=== PATIENT | male | born 1945 | race Caucasian/White ===

== ENCOUNTER → 2018-03-17 06:55 | Outpatient (CLI) | payer MEDICARE, SELFPAY ==
[2018-03-17 09:28] LABS: Add Manual Diff / Slide Review NO; Basophils Percent Auto 0.6 % (0-2); Eosinophils Percent Auto 5.1 % (2-4); Hematocrit 43.3 % (41-53); Hemoglobin 15.2 g/dL (13.5-17.5); Lymphocytes Percent Auto 25.9 % (25-40); Mean Corpuscular HGB Conc 35.1 % (30-36); Mean Corpuscular Hemoglobin 34.3 PG (26-34); Mean Corpuscular Volume 97.6 fL (80-100); Monocytes Percent Auto 9.6 % (3-14); Neutrophils Absolute Auto 3100 /uL (3000-5900); Neutrophils Percent Auto 58.8 % (50-75); Platelet Count 162 X10^3/uL (150-400); Red Blood Cell Count 4.44 X10^6/uL (4.5-5.9); Red Cell Distribution Width 13.5 % (11.6-14.8); White Blood Cell Count 5.2 X10^3/uL (4.5-11.0)
[2018-03-17 10:17] LABS: HEMOLYSIS < 15 (0-50); Potassium 4.2 mmol/L (3.4-5.1)
[2018-03-17 10:20] LABS: Alanine Aminotransferase 34 IU/L (21-72); Albumin 3.9 g/dL (3.5-5.0); Albumin Globulin Ratio 1.4 (1.0-2.8); Alkaline Phosphatase 68 U/L (38-126); Aspartate Aminotransferase 24 IU/L (17-59); BUN Creatinine Ratio 18.9 (6-22); Bilirubin Total 1.3 mg/dL (0.2-1.3); Blood Urea Nitrogen 17 mg/dL (9-20); Calcium 8.8 mg/dL (8.4-10.2); Carbon Dioxide 28 mmol/L (22-32); Chloride 101 mmol/L (98-107); Cholesterol 195 mg/dL (140-199); Estimated Glomerular Filt Rate > 60.0 mL/min (>60); Globulin 2.7 g/dL (1.7-4.1); Glucose 86 mg/dL (80-110); HDL Cholesterol 45 mg/dL (40-60); LDL Cholesterol Calculated 132 mg/dL (<100); Sodium 140 mmol/L (137-145); Total Protein 6.6 g/dL (6.3-8.2); Triglycerides 90 mg/dL (35-150)
[2018-03-17 10:22] LABS: TSH w/ Reflex to FT4 3.55 uIU/mL (0.47-4.68)
[2018-03-17 10:38] LABS: Prostate Specific Antigen Scrn 2.06 ng/mL (0.1-4.0)
== END ==
PROVIDERS: Visit Provider Family Medicine
DX: E03.9 Hypothyroidism, unspecified (principal); Z12.5 Encounter for screening for malignant neoplasm of prostate
CPT/HCPCS: 36415; 80053; 80061; 84443; 85025; G0103

== ENCOUNTER 2019-03-09 08:01 | Day surgery (SDC) | payer MEDICARE, SELFPAY ==
[2019-03-09] VITALS (9 sets, daily range): BP systolic 93–134; BP diastolic 61–78; PULSE 51–59; RESP 11–17; TEMP 35.8–36.4; O2SAT 93–98; BMI 25.8
--- NOTE | 2019-03-09 | PATH_ITS ---
[facility] Accession Number: [id number] . 01 Material submitted: . PART A: colon - BIOPSY AT 30CM PART B: colon - DESCENDING COLON BIOPSY PART C: rectum - RECTUM BIOPSY . 02 Diagnosis: A. Colon, Biopsy at 30 cm, Biopsy: Hyperplastic polyp. . B. Descending Colon, Biopsy: Tubular adenoma. . C. Rectum, Biopsy: Hyperplastic polyp. MRV/03/13/2019 . 02 Electronically signed: . Mandi Dickson MD, Pathologist NPI- [id number] . 01 Gross description: . Part A: BIOPSY AT 30CM: Received in formalin are multiple fragment(s) of browning, soft tissue measuring 0.8 x 0.3 x 0.2 cm in aggregate submitted entirely in 1 cassette(s) Part B: DESCENDING COLON BIOPSY: Received in formalin are multiple fragment(s) of browning, soft tissue measuring 0.5 x 0.5 x 0.2 cm in aggregate submitted entirely in 1 cassette(s) Part C: RECTUM BIOPSY: Received in formalin are multiple fragment(s) of browning, soft tissue measuring 0.8 x 0.5 x 0.2 cm in aggregate submitted entirely in 1 cassette(s) /CKI /CKI . 02 Pathologist provided ICD-10: D12.4 . 02 CPT . 807121, 715160, [id number] Performed at: 01 [facility] [address] [facility], [place], [place] [id number] MD Geo Delatorre MD Phone: [phone] Performed at: 02 [facility] [address] [place], [place] [id number] MD Mandi Dickson MD Phone: [phone]
[2019-03-09] MEDS: SODIUM CHLORIDE 0.9% 1,000 ML 200 ML IV (09:08)
--- NOTE | 2019-03-09 10:37 | PM.HP.1 ---
History of Present Illness Date Patient Seen: 03/09/19 Time Patient Seen: 10:37 Chief complaint: [id number] Narrative: Patient is a gentleman here for screening exam. He has a personal history of polyps. Last exam was 5 years ago. Patient History Medical History Atrial fibrillation (Chronic) Chronic anticoagulation (Chronic) Hearing loss (Chronic 1999) Chicken pox (Resolved ~1949) Colles' fracture (Resolved 1974) Colon polyps (Resolved 2004) Empyema lung (Resolved ~1988) Fracture of left pelvis (Resolved 1974) Measles (Resolved ~1949) Surgical History Anesthesia (Resolved) Empyema of lung (Resolved ~1988) History of orthopedic surgery (Resolved 1974) Status post cholecystectomy (Resolved 1976) Family History Grandfather Heart disease Bronchial pneumonia Grandmother Stroke Mother Age: 100 Shortness of breath Suspected cervical cancer Skin cancer Grandfather Stroke Diabetes mellitus Father Asbestos exposure Smoker Grandmother Diabetes mellitus Sister No problems noted. Social History marital status: number of children: 2 household members: spouse lives independently: Yes caregiver/support person: No pets and animals: No education level: vocational Smoking Status: Never smoker alcohol intake: current Family & Social History Family History Grandfather Heart disease Bronchial pneumonia Grandmother Stroke Mother Age: 100 Shortness of breath Suspected cervical cancer Skin cancer Grandfather Stroke Diabetes mellitus Father Asbestos exposure Smoker Grandmother Diabetes mellitus Sister No problems noted. Social History: household members spouse lives independently Yes caregiver/support person No Tobacco & Substance use: Smoking Status Never smoker alcohol intake current Meds Home Medications Medication Instructions Recorded Confirmed Type flecainide 1 tab PO BID #0 10/23/17 03/09/19 History metoprolol tartrate 50 mg tablet 25 mg PO BID tab 03/23/18 03/09/19 History levothyroxine 75 mcg tablet 75 mcg PO QAM #90 tab 03/31/18 03/09/19 Rx warfarin 5 mg tablet 5 mg PO QDAY #100 tab 07/12/18 03/09/19 Rx Allergies Allergy/AdvReac Type Severity Reaction Status Date / Time No Known Drug Allergies Allergy Verified 03/09/19 08:52 Review of Systems Review of Systems All systems reviewed & are unremarkable except as noted in HPI and below Neurologic Comments: Hypothyroid Exam Vital Signs (past 8 hours): - 03/09/19 08:59 Temperature 97.5 F L Pulse Rate 54 L Respiratory Rate 15 Blood Pressure 134/78 Pulse Oximetry 98 Oxygen Delivery Method Room Air Narrative Exam Narrative: Pleasant cooperative patient no apparent distress. Lungs are clear to auscultation. No rales or rhonchi. Heart regular rate and rhythm no murmur gallop. Abdomen is soft nontender without mass. No obvious hernias. Patient is alert and oriented x3. Assessment & Plan Assessment & Plan narrative: The patient for a screening colonoscopy. I have discussed the procedure with them. Risks of bleeding, perforation which would necessitate major operation, failure to find remove all lesions, the potential tattoo were all discussed. All questions were answered. They wished to proceed.
--- NOTE | 2019-03-09 10:39 | PM.PREOP ---
Pre-operative Note Interval Note History & Physical reviewed/Exam performed by Physician: Yes Changes to H&P: No ASA Class (for procedural sedation): II
[2019-03-09] MEDS: fentaNYL 250 MCG/5 ML INJ IV (11:14)
[2019-03-09] MEDS: MIDAZOLAM 5 MG/5 ML VIAL IV (11:15)
--- NOTE | 2019-03-09 11:19 | PM.OP.ENDO ---
Operative Date/Time/Diagnoses Date of procedure: 03/09/19 Time of procedure: 11:19 Pre-op diagnosis: Screening examination. Last colonoscopy 5 years ago. Personal history of polyps. Post-op diagnosis: same (Multiple polyps. Incomplete exam) Procedure & Clinicians Study performed: Colonoscopy to the hepatic flexure. Cold biopsies Same procedure as scheduled: Yes Indications: Screening Surgeon: Jesús Sánchez Procedure Notes SCOAP/Timeout: Performed Procedure in detail: The patient was placed in the left lateral decubitus position and underwent IV sedation directed by the surgeon consisting of fentanyl and Versed. Digital exam was remarkable for large firm prostate. The scope was inserted and advanced through the rectum into the sigmoid, descending, and transverse colon. I noted [address] in and removed those with cold biopsy forceps placing them in the same cane Min due to the proximity to 1 another. When I reached what appeared to be the hepatic flexure ran out of scope. Scope was backed away a stiffener inserted pressure applied the patient was repositioned and despite all of the maneuvers I could not get any further. I then backed the scope out a considerable distance and reinserted it to no additional effect. After spending a considerable amount of time stagnant and unable to go beyond that position I abandoned the procedure and gradually brought the scope out. The scope was gradually brought out. Additional Polyps were found at the descending colon. The scope ultimately was retroflexed in the rectum. There w were several small lesion there that was biopsied. No internal hemorrhoids were seen The scope was removed and the patient tolerated the procedure well. Prep was good. Scope withdrawal time: Not applicable Sedation minutes: 34 Findings: polyp (Small) and other findings (Elongated colon) Specimen(s): other (Polyps) Complications: none Recommendations: Colonscopy in 5 years and Other recommendation (Barium enema to evaluate the cecum and ascending colon) Follow up: as needed Disposition: PACU
== END 2019-03-09 12:32 | disposition home or self-care (01) ==
PROVIDERS: PCP Family Medicine; Visit Provider Specialist
PROC: 0DJD8ZZ Inspection of Lower Intestinal Tract, Via Natural or Artificial Opening Endoscopic (ICD-10-PCS; CPT 45378; principal; 2019-03-09 09:45)
DX: Z86.010 Personal history of colon polyps (principal); D12.4 Benign neoplasm of descending colon; K62.1 Rectal polyp
CPT/HCPCS: 45380; 88305; 99152; 99153; J2250; J3010

== ENCOUNTER → 2019-04-24 07:27 | Outpatient (CLI) | payer MEDICARE, SELFPAY ==
[2019-04-24 08:03] LABS: Add Manual Diff / Slide Review NO; Basophils Absolute Auto 0 /uL (0-100); Basophils Percent Auto 0.6 % (0-2); Eosinophils Absolute Auto 400 /uL (0-450); Eosinophils Percent Auto 7.2 % (2-4); Hematocrit 43.2 % (41-53); Hemoglobin 14.8 g/dL (13.5-17.5); Lymphocytes Absolute Auto 1500 /uL (1100-4500); Lymphocytes Percent Auto 26.3 % (25-40); Mean Corpuscular HGB Conc 34.3 % (30-36); Mean Corpuscular Hemoglobin 33.8 PG (26-34); Mean Corpuscular Volume 98.5 fL (80-100); Monocytes Absolute Auto 500 /uL (0-900); Monocytes Percent Auto 8.9 % (3-14); Neutrophils Absolute Auto 3300 /uL (1500-7000); Platelet Count 182 X10^3/uL (150-400); Red Blood Cell Count 4.39 X10^6/uL (4.5-5.9); Red Cell Distribution Width 13.5 % (11.6-14.8); White Blood Cell Count 5.8 X10^3/uL (4.5-11.0)
[2019-04-24 08:19] LABS: Alanine Aminotransferase 25 IU/L (21-72); Albumin Globulin Ratio 1.4 (1.0-2.8); Alkaline Phosphatase 57 U/L (38-126); Aspartate Aminotransferase 25 IU/L (17-59); BUN Creatinine Ratio 18.9 (6-22); Bilirubin Total 1.2 mg/dL (0.2-1.3); Blood Urea Nitrogen 17 mg/dL (9-20); Calcium 9.1 mg/dL (8.4-10.2); Carbon Dioxide 29 mmol/L (22-32); Chloride 105 mmol/L (98-107); Cholesterol 187 mg/dL (140-199); Estimated Glomerular Filt Rate > 60.0 mL/min (>60); Globulin 2.8 g/dL (1.7-4.1); Glucose 94 mg/dL (80-110); HDL Cholesterol 35 mg/dL (40-60); HEMOLYSIS < 15 (0-50); LDL Cholesterol Calculated 131 mg/dL (<100); Potassium 4.2 mmol/L (3.4-5.1); Sodium 142 mmol/L (137-145); Total Protein 6.8 g/dL (6.3-8.2); Triglycerides 106 mg/dL (35-150)
[2019-04-24 08:49] LABS: Prostate Specific Antigen Scrn 2.48 ng/mL (0.1-4.0)
[2019-04-24 09:37] LABS: Creatinine Urine Random 179.2 mg/dL
[2019-04-24 09:39] LABS: Microalbumi Creatinin Ratio Ur 4.4 ug/mg CR (<30); Microalbumin Urine Random 0.8 mg/dL (0-1.6)
== END ==
PROVIDERS: PCP Family Medicine; Visit Provider Family Medicine
DX: E03.9 Hypothyroidism, unspecified (principal); I10 Essential (primary) hypertension; I48.91 Unspecified atrial fibrillation; Z12.5 Encounter for screening for malignant neoplasm of prostate; Z98.890 Other specified postprocedural states
CPT/HCPCS: 36415; 80053; 80061; 82043; 82570; 84443; 85025; G0103

== ENCOUNTER → 2019-05-31 14:36 | Outpatient (CLI) | payer MEDICARE, SELFPAY ==
--- NOTE | 2019-05-31 | DI.ECHO.S_ITS ---
[facility]---------+ [facility] +---------+ : : [address] : : : : [id number] : : : : Phone: [phone] Echocardiogram Report + + :Name: SERGIO MILLS Study Date: 05/31/2019 Height: 70 in : :[facility] Exam Location: [facility] Weight: 183 lb : : Gender: Male BSA: 2.0 m2 : :: 1945 Age: 73 yrs BP: 104/68 mmHg: :Reason For Study: DILATED ASCENDING AO : : Performed By: Ponce Taylor : :Referring: CHARI JAQUEZ : + + Interpretation Summary The left ventricle is normal in size.Left ventricular ejection fraction is estimated to be 55. There has been no significant change in LVEF since the previous study. The right ventricle is normal in size and function. There is mild to moderate mitral regurgitation. Compared to the prior echo study, there has been an increase in the severity of mitral regurgitation. The ascending aorta is moderately enlarged. 4.3 cm in diameter. In November 2016 it was about 4.2 cm. Procedure: A two-dimensional transthoracic echocardiogram with color flow and Doppler was performed. The study quality was technically good. Comparison is made with the echocardiogram of 12/08/16. The patient was in normal sinus rhythm during the exam. The patient was bradycardic with a heart rate of 55-60 beats per minute. Left Ventricle: The left ventricle is normal in size. There is normal left ventricular wall thickness. There is no thrombus. There has been no significant change since the previous study. Left ventricular ejection fraction is estimated to be 55. There are no focal wall motion abnormalities. Diastolic parameters suggest probable normal left ventricular diastolic function and normal filling pressures. Right Ventricle: The right ventricle is normal in size and function. Atria: The left atrium is moderately dilated. The left atrium has significantly increased in size since the prior echo exam. The right atrium is severely dilated. There has been no significant change since the previous study. The interatrial septum is intact with no evidence for an atrial septal defect. Mitral Valve: The mitral valve leaflets are slightly calcified. There is mild to moderate mitral regurgitation. Compared to the prior echo study, there has been an increase in the severity of mitral regurgitation. Aortic Valve: The aortic valve is trileaflet. The aortic valve opens well. Tricuspid Valve: The tricuspid valve is normal. There is mild tricuspid regurgitation. The right ventricular systolic pressure is estimated to be at least 20 mmHg based on an estimated right atrial pressure of 3 mm Hg. Compared to the prior echo exam, there has been no change in TR severity. Pulmonic Valve: The pulmonic valve is not well seen, but is grossly normal. There is trace pulmonic regurgitation. Great Vessels: The aortic root is normal size. The ascending aorta is moderately enlarged. The pulmonary artery is normal size. The IVC is of normal diameter and collapses greater than 50% with a sniff. This suggests a low right atrial pressure of 3 mm Hg. Pericardium/ Pleura There is no pericardial effusion. There is no pleural effusion. MMode/2D Measurements & Calculations LVIDd: 5.2 cm LVOT diam: 2.5 cm LVIDs: 3.1 cm Ao root diam: 3.9 cm FS: 40.4 % Aortic Jxn: 3.6 cm EPSS: 0.47 cm asc Aorta Diam: 4.3 cm IVSd: 0.96 cm Ao Arch Diam (Prox Trans): 3.0 cm LVPWd: 0.81 cm LV ovalle. diameter/BSA (cm/m^2): 2.6 LV sys. diameter/BSA (cm/m^2): 1.5 LA dimension: 4.1 cm RA long axis: 5.9 cm LA A2 area: 26.7 cm2 RA area: 26.9 cm2 LA A4 area: 25.2 cm2 RA vol: 105.1 ml LA length (vol): 6.6 cm RA : 52.3 ml/m2 LA vol: 86.1 ml IVC diam: 0.67 cm LA vol index: 42.8 ml/m2 RVD1 (basal): 3.8 cm RVD2 (mid): 3.5 cm Doppler Measurements & Calculations Ao V2 max: 88.3 cm/sec LVOT Max Aniceto: 80.7 cm/sec Ao V2 mean: 73.0 cm/sec LV V1 max P.6 mmHg Ao max P.1 mmHg LV V1 VTI: 18.7 cm Ao mean P.2 mmHg MARGARITA(I,D): 3.9 cm2 Ao V2 VTI: 23.2 cm MARGARITA(V,D): 4.4 cm2 sev ratio: 0.80 MARGARITA indexed to BSA (cm^2/m^2): 1.9 MV E max aniceto: 56.6 cm/sec TR max aniceto: 204.8 cm/sec MV A max aniceto: 35.5 cm/sec TR max P.8 mmHg MV E/A: 1.6 PA V2 max: 43.0 cm/sec Med Peak E' Aniceto: 5.3 cm/sec PA V2 mean: 31.2 cm/sec E/E' med: 10.8 PA mean P.42 mmHg Lat Peak E' Aniceto: 7.5 cm/sec PA pr(Accel): 51.6 mmHg E/E' lat: 7.5 PA Accel Time: 0.07 sec E/e' average: 9.1 MV dec time: 0.25 sec SV(LVOT): 89.4 ml Reading Physician:05:07 PM
== END ==
PROVIDERS: PCP Family Medicine; Visit Provider Internal Medicine Cardiovascular Disease
DX: I77.810 Thoracic aortic ectasia (principal); I08.1 Rheumatic disorders of both mitral and tricuspid valves
CPT/HCPCS: 93306

== ENCOUNTER 2019-12-28 11:50 | Emergency (ER) | payer MEDICARE, SELFPAY ==
[2019-12-28 11:55] VITALS: BP 136/83; PULSE 99; RESP 20; TEMP 36.9; O2SAT 100
[2019-12-28 12:05] VITALS: BP 132/69; PULSE 110; RESP 16; TEMP 36.8; O2SAT 94
--- NOTE | 2019-12-28 12:48 | DI.RAD.S_ITS ---
PROCEDURE: XR CHEST 1V INDICATIONS: hx of afib, lightheadedness TECHNIQUE: One view of the chest was acquired. COMPARISON: [facility], , CHEST 2 VIEW, 12/07/2016, 19:13. FINDINGS: Surgical changes and devices: None. Lungs and pleura: Lungs are clear. No pleural effusions or pneumothorax. Mediastinum: Mediastinal contours appear normal. Heart size is normal. Bones and chest wall: No suspicious bony lesions. Overlying soft tissues appear unremarkable. IMPRESSION: No acute cardiopulmonary disease process. Dictated by: Flaca Browne MD, PhD on 12/28/2019 at 12:19 Approved by: Flaca Browne MD, PhD on 12/28/2019 at 12:23
--- NOTE | 2019-12-28 12:50 | ED.ARRPALP ---
HPI - Arrhythmia/Palpitations <AGNES Thomas - Last Filed: 12/28/19 23:47> General Chief Complaint: Arrhythmia/Palpitations Stated Complaint: Afib, SOB Time Seen by Provider: 12/28/19 12:35 Source: patient and EMS Mode of arrival: EMS Limitations: no limitations History of Present Illness HPI narrative: This is a 74-year-old male, who was brought in by medics with chief complain of lightheadedness. Patient has a history of AFib for last 2-3 years and had ablation procedure done about 2 years ago. Patient is currently taking metoprolol or 25 mg IR twice a day and flecainide 100 mg in the morning and 50 mg in the evening which patient forgot to take this morning. Patient reports he was playing 18 holes golf this morning and while he was playing last 6 home he was having some lightheadedness. He was on the way to [facility] via [employer] and he continue to felt lightheadedness almost at the point of passing out. He did not have chest pain, breathing difficulty at this time. Patient reports his usual heart rate is in 60s. Currently while at rest in ED patient denies any symptoms. Patient also has history of hypothyroidism and currently takes levothyroxine 75 mcg at this time. Related Data Home Medications Medication Instructions Recorded Confirmed metoprolol tartrate 50 mg tablet 25 mg PO BID tab 03/23/18 12/28/19 flecainide 50 mg tablet 100 mg PO QAM 10/04/19 12/28/19 flecainide 50 mg PO QPM 12/28/19 12/28/19 warfarin 5 mg PO DAILY 12/28/19 12/28/19 Previous Rx's Medication Instructions Recorded levothyroxine 75 mcg tablet 75 mcg PO QAM #90 tab 08/13/19 atorvastatin 20 mg tablet 20 mg PO BEDTIME #90 tab 08/29/19 Allergies Allergy/AdvReac Type Severity Reaction Status Date / Time No Known Drug Allergies Allergy Verified 08/29/19 09:02 Review of Systems <AGNES Thomas - Last Filed: 12/28/19 23:47> Review of Systems Narrative: General: Denies fever, chills, fatigue, malaise, sweats. HEENT: Denies sinus pain, ear pain, sore throat, difficulty swallowing, (+) dizziness. Respiratory: Denies dyspnea, cough, wheezing, hemoptysis, sputum. Cardiovascular: See HPI Gastrointestinal: Denies nausea, vomiting, abdominal pain, diarrhea, constipation, melena. : Denies dysuria, frequency, incontinence, hematuria, urinary retention. Musculoskeletal: Denies weakness, joint pain or bony pain. Skin: Denies rash, skin lesions, or other. Neurologic: Denies weakness, headache, numbness, change in speech, confusion, seizures, incoordination. Psychiatric: No concerning psychosocial issues. 12-point review of systems is negative except for those stated above. Patient History <AGNES Thomas - Last Filed: 12/28/19 23:47> Medical History Atrial fibrillation (Chronic) Chicken pox (Resolved ~1949) Chronic anticoagulation (Chronic) Colles' fracture (Resolved 1974) Colon polyps (Resolved 2004) Empyema lung (Resolved ~1988) Fracture of left pelvis (Resolved 1974) Hearing loss (Chronic 1999) Measles (Resolved ~1949) Surgical History Anesthesia (Resolved) Empyema of lung (Resolved ~1988) H/O cardiac radiofrequency ablation (Acute) History of orthopedic surgery (Resolved 1974) Status post cholecystectomy (Resolved 1976) Family History Grandfather Heart disease Bronchial pneumonia Grandmother Stroke Mother Age: 101 Shortness of breath Suspected cervical cancer Skin cancer Grandfather Stroke Diabetes mellitus Father Asbestos exposure Smoker Grandmother Diabetes mellitus Sister No problems noted. Social History marital status: number of children: 2 household members: spouse lives independently: Yes caregiver/support person: No housing: house pets and animals: No education level: vocational Smoking Status: Never smoker second hand exposure: No alcohol intake: current substance use type: does not use Smoking Status: Never smoker alcohol intake frequency: 0-2 drinks per day Substance Use Type: does not use Exam <AGNES Thomas - Last Filed: 12/28/19 23:47> Narrative Exam Narrative: GEN: Alert, oriented x 3, well appearing and nourished, and in no acute distress. Head: Normal cephalic, atraumatic. No scalp or temporal tenderness, palpable mass or rash. EYES: Pupils are equal, round, and reactive to light and accommodation. Extraocular muscles are intact bilaterally. There is no subconjunctival hemorrhage, exudate and sclera non-icteric. ENT: Bilateral auditory canals and tympanic membranes clear. Hearing grossly intact. Nose without bleeding, purulent discharge or deviation. Facial sinuses nontender to palpate. Mucous membrane moist, no mucosal lesion. Throat without erythema, tonsillar hypertrophy or exudate. Uvula in midline, airway patent. Neck: Trachea in midline. No JVD, non-tender without lymphadenopathy. No masses or thyroid megaly. Supple, non-tender and no meningeal signs. CARDIAC: Irregular rhythm without murmurs, gallops, or rubs. No chest wall tenderness. No peripheral edema, cyanosis or pallor. Capillary refill is less than 2 seconds. RESPIRATORY: Lungs are clear to auscultate bilaterally. No cough, wheezes, rales, or rhonchi. No stridor, respiratory distress, increase work of breathing, or accessary muscle used. ABD: Abdomen soft, nontender and non-distended. No guarding or rebound tenderness to palpate. Bowel sounds are normal in all 4 quadrants. There is no palpable masses or organomegaly. EXT: Full painless ROM of all extremities with no loss of sensation, strength, effusion or edema. SKIN: Warm, dry, normal color for patient. No erythema, lesions or rash over visible areas. BACK: Nontender without deformity or crepitance. No flank tenderness. NEUROLOGICAL: Alert and oriented to place, time and person. Sensation and motor function intact bilaterally. No facial droops, dysphasia. PSYCHIATRIC: Good judgement and reason, without hallucinations, abnormal affect or abnormal behaviors during the examination. Initial Vital Signs Initial Vital Signs: Vital Signs Temperature 98.4 F 12/28/19 11:55 Pulse Rate 99 H 12/28/19 11:55 Respiratory Rate 20 12/28/19 11:55 Blood Pressure 136/83 12/28/19 11:55 Pulse Oximetry 100 12/28/19 11:55 <Antonino Huitron MD - Last Filed: 01/04/20 17:57> Initial Vital Signs Initial Vital Signs: Vital Signs Temperature 98.4 F 12/28/19 11:55 Pulse Rate 99 H 12/28/19 11:55 Respiratory Rate 20 12/28/19 11:55 Blood Pressure 136/83 12/28/19 11:55 Pulse Oximetry 100 12/28/19 11:55 Scores <Robert BrannonAGNES hernandez - Last Filed: 12/28/19 23:47> GCS Herm[place]indo coma scale eye opening: Spontaneous [place] coma scale verbal response: Orientated [place] coma scale motor response: [place]bey commands [place] coma scale total score: 15 Course <Robert VazquezAGNES Guzman - Last Filed: 12/28/19 23:47> Orders Ordered: Discontinued Medications Flecainide Acetate (Tambocor) 100 mg PO NOW ONE Stop: 12/28/19 12:48 Last Admin: 12/28/19 13:09 Dose: 100 mg Documented by: ROZINA Sodium Chloride (Normal Saline 0.9%) 500 mls @ 1,000 mls/hr IV BOLUS ONE Stop: 12/28/19 13:16 Last Infusion: 12/28/19 14:00 Dose: 0 mls/hr Documented by: Admin: 12/28/19 13:09 Dose: 1,000 mls/hr Documented by: ROZINA Metoprolol Tartrate (Lopressor) 25 mg PO NOW ONE Stop: 12/28/19 12:48 Last Admin: 12/28/19 13:09 Dose: 25 mg Documented by: ROZINA Vital Signs Vital signs: Vital Signs - 8 hr 12/28/19 11:55 12/28/19 12:05 Temperature 98.4 F 98.3 F Pulse Rate 99 H 110 H Respiratory Rate 20 16 Blood Pressure 136/83 Blood Pressure [Right Arm] 132/69 Pulse Oximetry 100 94 <Antonino Huitron MD - Last Filed: 01/04/20 17:57> Orders Ordered: Discontinued Medications Flecainide Acetate (Tambocor) 100 mg PO NOW ONE Stop: 12/28/19 12:48 Last Admin: 12/28/19 13:09 Dose: 100 mg Documented by: ROZINA Sodium Chloride (Normal Saline 0.9%) 500 mls @ 1,000 mls/hr IV BOLUS ONE Stop: 12/28/19 13:16 Last Infusion: 12/28/19 14:00 Dose: 0 mls/hr Documented by: Admin: 12/28/19 13:09 Dose: 1,000 mls/hr Documented by: ROZINA Metoprolol Tartrate (Lopressor) 25 mg PO NOW ONE Stop: 12/28/19 12:48 Last Admin: 12/28/19 13:09 Dose: 25 mg Documented by: ROZINA Vital Signs Vital signs: Vital Signs - 8 hr 12/28/19 11:55 12/28/19 12:05 Temperature 98.4 F 98.3 F Pulse Rate 99 H 110 H Respiratory Rate 20 16 Blood Pressure 136/83 Blood Pressure [Right Arm] 132/69 Pulse Oximetry 100 94 MDM - Arrhythmia/Palpitations <AGNES Thomas - Last Filed: 12/28/19 23:47> Differential Diagnosis Differential diagnosis: Likely palpitations, sinus tachycardia, artial fibrillation and other (Arrhythmia) Medical Records Attestation: I reviewed the patient's medical records. Lab Data Attestation: I reviewed the patient's lab results. Result diagrams: 12/28/19 13:14 12/28/19 13:14 Labs: Lab Results 12/28/19 12/28/19 12/28/19 Range/Units 13:14 13:14 13:14 WBC 9.3 (4.5-11.0) X10^3/uL RBC 4.42 L (4.5-5.9) X10^6/uL Hgb 14.9 (13.5-17.5) g/dL Hct 43.5 (41-53) % MCV 98.3 (80-100) fL MCH 33.7 (26-34) PG MCHC 34.3 (30-36) % RDW 13.6 (11.6-14.8) % Plt Count 177 (150-400) X10^3/uL Neut % (Auto) 74.7 (50-75) % Lymph % (Auto) 14.5 L (25-40) % Burke % (Auto) 8.5 (3-14) % Eos % (Auto) 1.7 L (2-4) % Baso % (Auto) 0.6 (0-2) % Neut # (Auto) 7000 (9398-4328) /uL Lymph # (Auto) 1300 (6064-7937) /uL Burke # (Auto) 800 (0-900) /uL Eos # (Auto) 200 (0-450) /uL Baso # (Auto) 100 (0-100) /uL PT 26.1 H (10.1-12.7) SECONDS INR 2.3 H (0.9-1.3) APTT 36 (26.4-36.2) SECONDS Sodium 137 (137-145) mmol/L Potassium 4.5 (3.4-5.1) mmol/L Chloride 105 (98-107) mmol/L Carbon Dioxide 26 (22-32) mmol/L BUN 17 (9-20) mg/dL Creatinine 0.87 (0.66-1.25) mg/dL Estimated GFR > 60.0 (>60) mL/min BUN/Creatinine Ratio 19.5 (6-22) Glucose 104 (80-110) mg/dL Calcium 9.5 (8.4-10.2) mg/dL Magnesium (1.6-2.3) mg/dL Total Bilirubin 1.3 (0.2-1.3) mg/dL AST 29 (17-59) IU/L ALT 27 (<50) IU/L Alkaline Phosphatase 74 (38-126) U/L Total Creatine Kinase 63 (55-170) U/L CK-MB (CK-2) TNP CK-MB (CK-2) Rel Index TNP Troponin I < 0.012 (0.01-0.034) ng/mL Total Protein 7.1 (6.3-8.2) g/dL Albumin 4.1 (3.5-5.0) g/dL Globulin 3.0 (1.7-4.1) g/dL Albumin/Globulin Ratio 1.4 (1.0-2.8) Lipase 58 (23-300) U/L TSH (0.47-4.68) uIU/mL Free T4 (0.78-2.19) ng/dL 12/28/19 12/28/19 Range/Units 13:14 13:14 WBC (4.5-11.0) X10^3/uL RBC (4.5-5.9) X10^6/uL Hgb (13.5-17.5) g/dL Hct (41-53) % MCV (80-100) fL MCH (26-34) PG MCHC (30-36) % RDW (11.6-14.8) % Plt Count (150-400) X10^3/uL Neut % (Auto) (50-75) % Lymph % (Auto) (25-40) % Burke % (Auto) (3-14) % Eos % (Auto) (2-4) % Baso % (Auto) (0-2) % Neut # (Auto) (4076-9553) /uL Lymph # (Auto) (2187-1916) /uL Burke # (Auto) (0-900) /uL Eos # (Auto) (0-450) /uL Baso # (Auto) (0-100) /uL PT (10.1-12.7) SECONDS INR (0.9-1.3) APTT (26.4-36.2) SECONDS Sodium (137-145) mmol/L Potassium (3.4-5.1) mmol/L Chloride (98-107) mmol/L Carbon Dioxide (22-32) mmol/L BUN (9-20) mg/dL Creatinine (0.66-1.25) mg/dL Estimated GFR (>60) mL/min BUN/Creatinine Ratio (6-22) Glucose (80-110) mg/dL Calcium (8.4-10.2) mg/dL Magnesium 2.0 (1.6-2.3) mg/dL Total Bilirubin (0.2-1.3) mg/dL AST (17-59) IU/L ALT (<50) IU/L Alkaline Phosphatase (38-126) U/L Total Creatine Kinase (55-170) U/L CK-MB (CK-2) CK-MB (CK-2) Rel Index Troponin I (0.01-0.034) ng/mL Total Protein (6.3-8.2) g/dL Albumin (3.5-5.0) g/dL Globulin (1.7-4.1) g/dL Albumin/Globulin Ratio (1.0-2.8) Lipase (23-300) U/L TSH 3.35 (0.47-4.68) uIU/mL Free T4 1.50 (0.78-2.19) ng/dL ECG Data Attestation: I personally reviewed and interpreted this ECG as follows: Prior ECG tracings: available for review Interpretation: SR with occasional PVC and PAC rate at 91 Left [place] deviation No ST elevation or depression. Previous EKGs were a fever or normal sinus rhythm #2 EKG: -sinus rhythm rate at 64 with first-degree AV block with PAC -Left [place] deviation. No ST elevation. [facility] Narrative Medical decision making narrative: This is a 74-year-old gentleman who has history of AFib and cardiac ablation a couple of years ago and takes daily Flecainide and Metoprolol to control arrhythmia and rate daily presents to ED with lightheadedness after he forgot to take his morning dose medications and played [employer] hole golf this morning. Patient states his usual heart rate is in 60s and upon arrival to ED his heart rate was in 99 in sinus rhythm with PACs and PVCs without ST elevation or depression. Patient was medicated with his routine dose of flecainide and metoprolol. Cardiac enzymes were negative. Patient has history of hypothyroidism and takes levothyroxine daily. Normal TSH and free T4 today. Unremarkable chemistry test. Stable H&H and INR is 2.3 as in therapeutic range and patient currently takes warfarin daily. Chest x-ray indicates no acute cardiopulmonary disease process with normal heart size. 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 Repeat EKG was obtained before discharged to home indicating sinus rhythm rate at 64 with first-degree AV block without ST elevation. Patient also was hydrated with normal saline of 500 mL. Return precautions were discussed with the patient and patient verbalized understanding and agreement with treatment plan. <Antonino Huitron MD - Last Filed: 01/04/20 17:57> Lab Data Labs: Lab Results 12/28/19 12/28/19 12/28/19 Range/Units 13:14 13:14 13:14 WBC 9.3 (4.5-11.0) X10^3/uL RBC 4.42 L (4.5-5.9) X10^6/uL Hgb 14.9 (13.5-17.5) g/dL Hct 43.5 (41-53) % MCV 98.3 (80-100) fL MCH 33.7 (26-34) PG MCHC 34.3 (30-36) % RDW 13.6 (11.6-14.8) % Plt Count 177 (150-400) X10^3/uL Neut % (Auto) 74.7 (50-75) % Lymph % (Auto) 14.5 L (25-40) % Burke % (Auto) 8.5 (3-14) % Eos % (Auto) 1.7 L (2-4) % Baso % (Auto) 0.6 (0-2) % Neut # (Auto) 7000 (5886-1750) /uL Lymph # (Auto) 1300 (3369-0516) /uL Burke # (Auto) 800 (0-900) /uL Eos # (Auto) 200 (0-450) /uL Baso # (Auto) 100 (0-100) /uL PT 26.1 H (10.1-12.7) SECONDS INR 2.3 H (0.9-1.3) APTT 36 (26.4-36.2) SECONDS Sodium 137 (137-145) mmol/L Potassium 4.5 (3.4-5.1) mmol/L Chloride 105 (98-107) mmol/L Carbon Dioxide 26 (22-32) mmol/L BUN 17 (9-20) mg/dL Creatinine 0.87 (0.66-1.25) mg/dL Estimated GFR > 60.0 (>60) mL/min BUN/Creatinine Ratio 19.5 (6-22) Glucose 104 (80-110) mg/dL Calcium 9.5 (8.4-10.2) mg/dL Magnesium (1.6-2.3) mg/dL Total Bilirubin 1.3 (0.2-1.3) mg/dL AST 29 (17-59) IU/L ALT 27 (<50) IU/L Alkaline Phosphatase 74 (38-126) U/L Total Creatine Kinase 63 (55-170) U/L CK-MB (CK-2) TNP CK-MB (CK-2) Rel Index TNP Troponin I < 0.012 (0.01-0.034) ng/mL Total Protein 7.1 (6.3-8.2) g/dL Albumin 4.1 (3.5-5.0) g/dL Globulin 3.0 (1.7-4.1) g/dL Albumin/Globulin Ratio 1.4 (1.0-2.8) Lipase 58 (23-300) U/L TSH (0.47-4.68) uIU/mL Free T4 (0.78-2.19) ng/dL 12/28/19 12/28/19 Range/Units 13:14 13:14 WBC (4.5-11.0) X10^3/uL RBC (4.5-5.9) X10^6/uL Hgb (13.5-17.5) g/dL Hct (41-53) % MCV (80-100) fL MCH (26-34) PG MCHC (30-36) % RDW (11.6-14.8) % Plt Count (150-400) X10^3/uL Neut % (Auto) (50-75) % Lymph % (Auto) (25-40) % Burke % (Auto) (3-14) % Eos % (Auto) (2-4) % Baso % (Auto) (0-2) % Neut # (Auto) (3309-3966) /uL Lymph # (Auto) (7608-1793) /uL Burke # (Auto) (0-900) /uL Eos # (Auto) (0-450) /uL Baso # (Auto) (0-100) /uL PT (10.1-12.7) SECONDS INR (0.9-1.3) APTT (26.4-36.2) SECONDS Sodium (137-145) mmol/L Potassium (3.4-5.1) mmol/L Chloride (98-107) mmol/L Carbon Dioxide (22-32) mmol/L BUN (9-20) mg/dL Creatinine (0.66-1.25) mg/dL Estimated GFR (>60) mL/min BUN/Creatinine Ratio (6-22) Glucose (80-110) mg/dL Calcium (8.4-10.2) mg/dL Magnesium 2.0 (1.6-2.3) mg/dL Total Bilirubin (0.2-1.3) mg/dL AST (17-59) IU/L ALT (<50) IU/L Alkaline Phosphatase (38-126) U/L Total Creatine Kinase (55-170) U/L CK-MB (CK-2) CK-MB (CK-2) Rel Index Troponin I (0.01-0.034) ng/mL Total Protein (6.3-8.2) g/dL Albumin (3.5-5.0) g/dL Globulin (1.7-4.1) g/dL Albumin/Globulin Ratio (1.0-2.8) Lipase (23-300) U/L TSH 3.35 (0.47-4.68) uIU/mL Free T4 1.50 (0.78-2.19) ng/dL Discharge Plan Departure Patient Disposition: Home Clinical Impression: Dizziness Arrhythmia Qualifiers: Arrhythmia type: premature depolarization Premature depolarization type: unspecified Qualified Code(s): I49.40 - Unspecified premature depolarization Discharge Date/Time: 12/28/19 14:57 Instructions: Arrhythmias Activity Restrictions/Additional Instructions: You have been diagnosed with [arrhythmia and dizziness. EKG was initially sinus rhythm with PACs and PVCs with rate in 80's and 2nd EKG was sinus rhythm with first-degree AV block rate in 60s. Cardiac enzymes were normal. INR today was 2.3. Chemistry tests were unremarkable. TSH and free T4 were within normal. Chest x-ray does not show acute findings.]. What to do: *Take your medications as directed. You were medicated with her routine medications while in ED with Flecainide 100 mg and metoprolol 25 mg and your heart rate decreased to in 60s as your usual and resolved lightheadedness. *Follow up with your primary care provider in 2-3 days, call for an appointment. Let them know you were seen in the ED and that we asked you to be seen in follow up. *Return to ED if you have any new, worsening, or concerning symptoms, such as [chest pain, breathing difficulty, unable to tolerate fluids, lightheadedness, or any acute concerns]. Prescriptions: No Action atorvastatin 20 mg tablet 20 mg PO BEDTIME Qty: 90 RF: 2 levothyroxine [Synthroid] 75 mcg tablet 75 mcg PO QAM Qty: 90 RF: 3 flecainide 50 mg tablet 100 mg PO QAM RF: 0 metoprolol tartrate [Lopressor] 50 mg tablet 25 mg PO BID RF: 0 flecainide 50 mg tablet 50 mg PO QPM RF: 0 warfarin 5 mg tablet 5 mg PO DAILY RF: 0 Referrals: Johana Chong MD [Primary Care Provider] - Tamir Cruz MD [Physician] -
[2019-12-28] MEDS: FLECAINIDE 100 MG TABLET PO (13:09)
[2019-12-28] MEDS: SODIUM CHLORIDE 0.9% 500 ML 1000 ML IV (13:09)
[2019-12-28] MEDS: METOPROLOL IR 25 MG TABLET PO (13:09)
[2019-12-28 13:22] LABS: Add Manual Diff / Slide Review NO; Basophils Absolute Auto 100 /uL (0-100); Basophils Percent Auto 0.6 % (0-2); Eosinophils Absolute Auto 200 /uL (0-450); Eosinophils Percent Auto 1.7 % (2-4); Hematocrit 43.5 % (41-53); Hemoglobin 14.9 g/dL (13.5-17.5); Lymphocytes Absolute Auto 1300 /uL (1100-4500); Lymphocytes Percent Auto 14.5 % (25-40); Mean Corpuscular HGB Conc 34.3 % (30-36); Mean Corpuscular Hemoglobin 33.7 PG (26-34); Mean Corpuscular Volume 98.3 fL (80-100); Monocytes Absolute Auto 800 /uL (0-900); Monocytes Percent Auto 8.5 % (3-14); Neutrophils Absolute Auto 7000 /uL (1500-7000); Neutrophils Percent Auto 74.7 % (50-75); Platelet Count 177 X10^3/uL (150-400); Red Blood Cell Count 4.42 X10^6/uL (4.5-5.9); Red Cell Distribution Width 13.6 % (11.6-14.8); White Blood Cell Count 9.3 X10^3/uL (4.5-11.0)
[2019-12-28 13:33] LABS: INR 2.3 (0.9-1.3); Prothrombin Time 26.1 SECONDS (10.1-12.7)
[2019-12-28 13:36] LABS: PTT Partial Thromboplastin Tim 36 SECONDS (26.4-36.2)
[2019-12-28 13:39] LABS: Alanine Aminotransferase 27 IU/L (<50); Albumin 4.1 g/dL (3.5-5.0); Albumin Globulin Ratio 1.4 (1.0-2.8); Alkaline Phosphatase 74 U/L (38-126); Aspartate Aminotransferase 29 IU/L (17-59); BUN Creatinine Ratio 19.5 (6-22); Bilirubin Total 1.3 mg/dL (0.2-1.3); Blood Urea Nitrogen 17 mg/dL (9-20); Calcium 9.5 mg/dL (8.4-10.2); Carbon Dioxide 26 mmol/L (22-32); Chloride 105 mmol/L (98-107); Creatine Kinase 63 U/L (55-170); Estimated Glomerular Filt Rate > 60.0 mL/min (>60); Glucose 104 mg/dL (80-110); HEMOLYSIS 18 (0-50); Lipase 58 U/L (23-300); Potassium 4.5 mmol/L (3.4-5.1); Sodium 137 mmol/L (137-145); Total Protein 7.1 g/dL (6.3-8.2)
[2019-12-28 13:50] LABS: Troponin I < 0.012 ng/mL (0.01-0.034)
[2019-12-28 13:56] VITALS: BP 116/78; PULSE 64; RESP 23; O2SAT 97
[2019-12-28 14:14] LABS: Thyroid Stimulating Hormone 3.35 uIU/mL (0.47-4.68)
[2019-12-28 14:56] VITALS: BP 129/76; PULSE 66; RESP 14; O2SAT 97
== END 2019-12-28 14:57 | disposition home or self-care (01) ==
PROVIDERS: Emergency Provider Nurse Practitioner Family; PCP Family Medicine
DX: R42 Dizziness and giddiness (principal); I49.40 Unspecified premature depolarization; I48.91 Unspecified atrial fibrillation; Z79.01 Long term (current) use of anticoagulants; Z86.79 Personal history of other diseases of the circulatory system
CPT/HCPCS: 71045; 80053; 82550; 83690; 83735; 84439; 84443; 84484; 85025; 85610; 85730; 93005; 96360; 99283; 99284

== ENCOUNTER 2020-03-08 23:25 | Emergency (ER) | payer MEDICARE, SELFPAY ==
[2020-03-08 23:30] VITALS: BP 155/97; PULSE 75; RESP 18; TEMP 36.9; O2SAT 95; BMI 26.5
[2020-03-08 23:46] VITALS: PULSE 67; RESP 18; O2SAT 96
[2020-03-08] MEDS: ALBUTEROL/IPRATROPIUM 3 ML AMPUL INH (23:47)
--- NOTE | 2020-03-09 00:24 | DI.RAD.S_ITS ---
PROCEDURE: XR CHEST 1V INDICATIONS: difficulty breathing recent bronchitis TECHNIQUE: One view of the chest was acquired. COMPARISON: 12/28/19. FINDINGS: Surgical changes and devices: None. Lungs and pleura: Lungs are clear. No pleural effusions or pneumothorax. Again noted is elevation of the right hemidiaphragm. Mediastinum: Mediastinal contours appear normal. Heart size is normal. Bones and chest wall: No suspicious bony lesions. Overlying soft tissues appear unremarkable. IMPRESSION: No evidence acute pulmonary process. Dictated by: Henry Espinosa M.D. on 03/09/2020 at 6:47 Approved by: Henry Espinosa M.D. on 03/09/2020 at 6:49
[2020-03-09 00:33] LABS: Add Manual Diff / Slide Review NO; Basophils Absolute Auto 100 /uL (0-100); Basophils Percent Auto 1.7 % (0-2); Eosinophils Absolute Auto 500 /uL (0-450); Eosinophils Percent Auto 8.3 % (2-4); Hemoglobin 15.5 g/dL (13.5-17.5); Lymphocytes Absolute Auto 1500 /uL (1100-4500); Lymphocytes Percent Auto 25.4 % (25-40); Mean Corpuscular HGB Conc 35.3 % (30-36); Mean Corpuscular Hemoglobin 34.8 PG (26-34); Mean Corpuscular Volume 98.7 fL (80-100); Monocytes Absolute Auto 500 /uL (0-900); Monocytes Percent Auto 8.2 % (3-14); Neutrophils Absolute Auto 3400 /uL (1500-7000); Neutrophils Percent Auto 56.4 % (50-75); Platelet Count 185 X10^3/uL (150-400); Red Blood Cell Count 4.45 X10^6/uL (4.5-5.9); Red Cell Distribution Width 13.8 % (11.6-14.8)
[2020-03-09 00:40] LABS: Alanine Aminotransferase 35 IU/L (<50); Albumin 4.3 g/dL (3.5-5.0); Albumin Globulin Ratio 1.3 (1.0-2.8); Alkaline Phosphatase 69 U/L (38-126); Aspartate Aminotransferase 39 IU/L (17-59); BUN Creatinine Ratio 22.7 (6-22); Bilirubin Total 0.6 mg/dL (0.2-1.3); Blood Urea Nitrogen 17 mg/dL (9-20); Calcium 9.5 mg/dL (8.4-10.2); Carbon Dioxide 28 mmol/L (22-32); Chloride 103 mmol/L (98-107); Estimated Glomerular Filt Rate > 60.0 mL/min (>60); Globulin 3.3 g/dL (1.7-4.1); Glucose 113 mg/dL (80-110); HEMOLYSIS 21 (0-50); Potassium 4.1 mmol/L (3.4-5.1); Sodium 139 mmol/L (137-145); Total Protein 7.6 g/dL (6.3-8.2)
[2020-03-09 00:52] LABS: NT-proBNP (BNP-Adult 18+) 89 pg/mL (<450); Troponin I < 0.012 ng/mL (0.01-0.034)
--- NOTE | 2020-03-09 01:24 | ED.SOB ---
HPI - SOB/Dyspnea General Chief Complaint: Shortness of Breath/Dyspnea Stated Complaint: difficulty breathing recent bronchitis Time Seen by Provider: 03/08/20 23:44 Source: patient Mode of arrival: Ambulatory Limitations: no limitations History of Present Illness HPI Narrative: 74-year-old gentleman with a history of atrial fibrillation currently on warfarin, hypothyroidism, hypertension and hyperlipidemia presents with wheezing and dyspnea. He notes that over the last 4 days he has been working with [employer] on allay the with significant dust exposure. He has been using a respirator but notes that he has been more wheezy and itchy recently. He noted that he was wheezing prior to laying down for bed tonight got worse with laying flat and decided to come in to be further evaluated is he currently lives on [facility]. He denies fevers, chills, cough, palpitations, abdominal pain, vomiting/nausea/diarrhea, dizziness or syncope. He denies orthopnea, exertional dyspnea and lower extremity edema. He does note that in November after finishing a cruise and giving off a new [employer] he was diagnosed with bronchitis that resolved completely with the help of a [employer]. One week ago he noticed some mild pleuritic right-sided chest pain that has since resolved. Related Data Home Medications Medication Instructions Recorded Confirmed metoprolol tartrate 50 mg tablet 25 mg PO BID tab 03/23/18 12/28/19 flecainide 50 mg tablet 100 mg PO QAM 10/04/19 12/28/19 flecainide 50 mg PO QPM 12/28/19 12/28/19 warfarin 5 mg PO DAILY 12/28/19 12/28/19 Previous Rx's Medication Instructions Recorded levothyroxine 75 mcg tablet 75 mcg PO QAM #90 tab 08/13/19 atorvastatin 20 mg tablet 20 mg PO BEDTIME #90 tab 08/29/19 albuterol sulfate 2 puff INHALATION Q6H PRN #6.7 gram 03/09/20 prednisone 20 mg PO DAILY #5 tab 03/09/20 Allergies Allergy/AdvReac Type Severity Reaction Status Date / Time No Known Drug Allergies Allergy Verified 08/29/19 09:02 Review of Systems Review of Systems Narrative: Remainder of review of systems including constitutional, ENT, cardiovascular, respiratory, GI, , musculoskeletal, skin, neurologic and psychiatric systems reviewed and are unremarkable except as noted in HPI. Patient History Medical History Atrial fibrillation (Chronic) Chicken pox (Resolved ~1949) Chronic anticoagulation (Chronic) Colles' fracture (Resolved 1974) Colon polyps (Resolved 2004) Empyema lung (Resolved ~1988) Fracture of left pelvis (Resolved 1974) Hearing loss (Chronic 1999) Measles (Resolved ~1949) Surgical History Anesthesia (Resolved) Empyema of lung (Resolved ~1988) H/O cardiac radiofrequency ablation (Acute) History of orthopedic surgery (Resolved 1974) Status post cholecystectomy (Resolved 1976) Family History Grandfather Heart disease Bronchial pneumonia Grandmother Stroke Mother Age: 101 Shortness of breath Suspected cervical cancer Skin cancer Grandfather Stroke Diabetes mellitus Father Asbestos exposure Smoker Grandmother Diabetes mellitus Sister No problems noted. Social History marital status: number of children: 2 household members: spouse lives independently: Yes caregiver/support person: No housing: house pets and animals: No education level: vocational Smoking Status: Never smoker second hand exposure: No alcohol intake: current substance use type: does not use Smoking Status: Never smoker alcohol intake frequency: 0-2 drinks per day Substance Use Type: does not use Exam Narrative Exam Narrative: General: Healthy appearing, in no acute distress. Able to give a complete and coherent history. Well-nourished well-developed HEENT: Moist mucous membranes, normal sclera with reactive pupils, Neck: No JVD, supple Respiratory: Minor scattered wheeze without consolidative findings, no rales no rhonchi. Full and symmetrical air movement Cardiac: Regular rate and rhythm no murmurs no bruits Abdomen: Soft nontender good bowel tones, no flank pain Skin: Warm and dry, no rashes Neurologic: Grossly neurologically intact with no obvious asymmetries or abnormalities Extremities: No trauma, well perfused Psych: Cooperative, appropriate insight and affect Initial Vital Signs Initial Vital Signs: Vital Signs Temperature 98.5 F 03/08/20 23:30 Pulse Rate 75 03/08/20 23:30 Respiratory Rate 18 03/08/20 23:30 Blood Pressure 155/97 H 03/08/20 23:30 Pulse Oximetry 95 03/08/20 23:30 Course Orders Ordered: ED Orders 03/09/20 00:05 Complete Blood Count AUTO DIFF Stat 03/09/20 00:24 XR chest 1V Stat EKG-12 Lead Stat 03/09/20 23:44 Comprehensive Metabolic Panel Stat NT-proBNP (BNP-Adult 18+) Stat Troponin I Stat Discontinued Medications Albuterol/Ipratropium (Duoneb) 3 ml INH NOW ONE Stop: 03/08/20 23:46 Last Admin: 03/08/20 23:47 Dose: 3 ml Documented by: SHOLA Vital Signs Vital signs: Vital Signs - 8 hr 03/08/20 23:30 03/08/20 23:46 Temperature 98.5 F Pulse Rate 75 67 Respiratory Rate 18 18 Blood Pressure 155/97 H Pulse Oximetry 95 96 MDM - SOB/Dyspnea Medical Records Attestation: I reviewed the patient's medical records. Lab Data Attestation: I reviewed the patient's lab results. Result diagrams: 03/08/20 23:44 03/08/20 23:44 Labs: Lab Results 03/08/20 03/08/20 Range/Units 23:44 23:44 WBC 6.0 (4.5-11.0) X10^3/uL RBC 4.45 L (4.5-5.9) X10^6/uL Hgb 15.5 (13.5-17.5) g/dL Hct 44.0 (41-53) % MCV 98.7 (80-100) fL MCH 34.8 H (26-34) PG MCHC 35.3 (30-36) % RDW 13.8 (11.6-14.8) % Plt Count 185 (150-400) X10^3/uL Neut % (Auto) 56.4 (50-75) % Lymph % (Auto) 25.4 (25-40) % [place] % (Auto) 8.2 (3-14) % Eos % (Auto) 8.3 H (2-4) % Baso % (Auto) 1.7 (0-2) % Neut # (Auto) 3400 (5909-7938) /uL Lymph # (Auto) 1500 (5796-4459) /uL [place] # (Auto) 500 (0-900) /uL Eos # (Auto) 500 H (0-450) /uL Baso # (Auto) 100 (0-100) /uL Sodium 139 (137-145) mmol/L Potassium 4.1 (3.4-5.1) mmol/L Chloride 103 (98-107) mmol/L Carbon Dioxide 28 (22-32) mmol/L BUN 17 (9-20) mg/dL Creatinine 0.75 (0.66-1.25) mg/dL Estimated GFR > 60.0 (>60) mL/min BUN/Creatinine Ratio 22.7 H (6-22) Glucose 113 H (80-110) mg/dL Calcium 9.5 (8.4-10.2) mg/dL Total Bilirubin 0.6 (0.2-1.3) mg/dL AST 39 (17-59) IU/L ALT 35 (<50) IU/L Alkaline Phosphatase 69 (38-126) U/L Troponin I < 0.012 (0.01-0.034) ng/mL NT-Pro-B Natriuret Pep 89 (<450) pg/mL Total Protein 7.6 (6.3-8.2) g/dL Albumin 4.3 (3.5-5.0) g/dL Globulin 3.3 (1.7-4.1) g/dL Albumin/Globulin Ratio 1.3 (1.0-2.8) Imaging Data Chest x-ray: Attestation: I personally reviewed and interpreted this imaging study as follows: My Impression: Normal chest x-ray Normal mediastinum No infiltrates Elevated right hemidiaphragm ECG Data Attestation: I personally reviewed and interpreted this ECG as follows: Interpretation: Sinus rhythm with first-degree block Normal axis No acute ischemic changes MDM Narrative Medical decision making narrative: 74-year-old gentleman with increasing wheezing after working with specific resinous [employer]. He has a distant history of asthma but has not needed inhalers for years. No evidence of infection, pneumothorax, congestive heart failure, acute coronary syndrome. He responded nicely to albuterol. Will place him on a brief steroid course and prescribed albuterol with a spacer for him to use as needed. He is safe for home discharge at this time Discharge Plan Departure Patient Disposition: Home Clinical Impression: Reactive airway disease Qualifiers: Asthma severity: mild Asthma persistence: intermittent Asthma complication type: with acute exacerbation Qualified Code(s): J45.21 - Mild intermittent asthma with (acute) exacerbation Instructions: DI for Asthma -- Adult Activity Restrictions/Additional Instructions: Thank you for coming in today. With your workup I found no evidence of infection, congestive heart failure, heart attack or heart attack like syndromes. You responded nicely to albuterol in the emergency department. I suspect that your simply responding to the residence in the [facility] with which she were currently working. Your idea for making sure you continue with a respirator and then trying to get all of the saw dust and debris off your skin and out of your hair as soon as possible will certainly help her overall symptoms. I am going to suggest a brief course of steroids a mg a day for 4 days. I am also going to refill your prescription for albuterol this time with a spacer so that you can effectively use it. 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 Chong as needed. Please feel free to return to the emergency department if you feel that you are getting worse, have any new chest pain developed fevers or developing more productive cough. Prescriptions: New prednisone 20 mg tablet 20 mg PO DAILY Qty: 5 RF: 0 albuterol sulfate 90 mcg/actuation HFA aerosol inhaler 2 puff INHALATION Q6H PRN (Reason: shortness of breath or wheezing) Qty: 6.7 RF: 0 No Action atorvastatin 20 mg tablet 20 mg PO BEDTIME Qty: 90 RF: 2 levothyroxine [Synthroid] 75 mcg tablet 75 mcg PO QAM Qty: 90 RF: 3 flecainide 50 mg tablet 100 mg PO QAM RF: 0 metoprolol tartrate [Lopressor] 50 mg tablet 25 mg PO BID RF: 0 flecainide 50 mg tablet 50 mg PO QPM RF: 0 warfarin 5 mg tablet 5 mg PO DAILY RF: 0 Referrals: Johana Chong MD [Primary Care Provider] -
[2020-03-09] MEDS: methylPREDNISolone 125 MG/2 ML VIAL 80 MG IV (06:34)
[2020-03-09 06:48] VITALS: BP 130/77; PULSE 62; RESP 15; TEMP 36.3; O2SAT 98
== END 2020-03-09 06:49 | disposition home or self-care (01) ==
PROVIDERS: Emergency Provider Emergency Medicine; PCP Family Medicine
DX: J45.21 Mild intermittent asthma with (acute) exacerbation (principal); I48.91 Unspecified atrial fibrillation; Z79.01 Long term (current) use of anticoagulants; I10 Essential (primary) hypertension; E03.9 Hypothyroidism, unspecified; E78.5 Hyperlipidemia, unspecified
CPT/HCPCS: 36415; 71045; 80053; 83880; 84484; 85025; 93005; 93010; 94640; 96374; 99284; J2930

== ENCOUNTER → 2020-04-24 07:56 | Outpatient (CLI) | payer MEDICARE, SELFPAY ==
[2020-04-24 09:01] LABS: Creatinine Urine Random 51.5 mg/dL
[2020-04-24 09:12] LABS: Microalbumi Creatinin Ratio Ur 11.6 ug/mg CR (<30); Microalbumin Urine Random < 0.6 mg/dL (0-1.6)
[2020-04-24 10:22] LABS: Alanine Aminotransferase 35 IU/L (<50); Albumin 3.9 g/dL (3.5-5.0); Albumin Globulin Ratio 1.6 (1.0-2.8); Alkaline Phosphatase 63 U/L (38-126); Aspartate Aminotransferase 34 IU/L (17-59); BUN Creatinine Ratio 19.4 (6-22); Blood Urea Nitrogen 14 mg/dL (9-20); Carbon Dioxide 30 mmol/L (22-32); Chloride 104 mmol/L (98-107); Cholesterol 123 mg/dL (140-199); Estimated Glomerular Filt Rate > 60.0 mL/min (>60); Globulin 2.5 g/dL (1.7-4.1); Glucose 89 mg/dL (80-110); HDL Cholesterol 42 mg/dL (40-60); HEMOLYSIS < 15 (0-50); LDL Cholesterol Calculated 59 mg/dL (<100); Potassium 4.2 mmol/L (3.4-5.1); Sodium 140 mmol/L (137-145); Total Protein 6.4 g/dL (6.3-8.2); Triglycerides 108 mg/dL (35-150)
== END ==
PROVIDERS: PCP Family Medicine; Referring Provider Internal Medicine Cardiovascular Disease; Visit Provider Internal Medicine Cardiovascular Disease
DX: I48.0 Paroxysmal atrial fibrillation (principal); E78.6 Lipoprotein deficiency; E03.9 Hypothyroidism, unspecified; I10 Essential (primary) hypertension
CPT/HCPCS: 36415; 80053; 80061; 82043; 82570

== ENCOUNTER → 2020-11-11 14:25 | Outpatient (CLI) | payer MEDICARE, SELFPAY ==
[2020-11-11] MEDS: COVID-19 VACC #1, MRNA(MOD) 100 MCG/0.5 ML VIAL IM (14:29)
== END ==
PROVIDERS: PCP Family Medicine; Visit Provider Internal Medicine
DX: Z23 Encounter for immunization (principal)
CPT/HCPCS: 0011A; 91301

== ENCOUNTER → 2020-12-09 14:34 | Outpatient (CLI) | payer MEDICARE, SELFPAY ==
[2020-12-09] MEDS: COVID-19 VACC #2, MRNA(MOD) 100 MCG/0.5 ML VIAL IM (14:40)
== END ==
PROVIDERS: PCP Family Medicine; Visit Provider Internal Medicine
DX: Z23 Encounter for immunization (principal)
CPT/HCPCS: 0012A; 91301

== ENCOUNTER → 2020-12-17 07:01 | Outpatient (CLI) | payer MEDICARE, SELFPAY ==
[2020-12-17 08:37] LABS: Alanine Aminotransferase 23 IU/L (<50); Albumin 3.9 g/dL (3.5-5.0); Albumin Globulin Ratio 1.4 (1.0-2.8); Alkaline Phosphatase 69 U/L (38-126); Aspartate Aminotransferase 27 IU/L (17-59); BUN Creatinine Ratio 22.2 (6-22); Bilirubin Total 0.7 mg/dL (0.2-1.3); Blood Urea Nitrogen 18 mg/dL (9-20); Carbon Dioxide 30 mmol/L (22-32); Chloride 105 mmol/L (98-107); Cholesterol 125 mg/dL (140-199); Estimated Glomerular Filt Rate > 60.0 mL/min (>60); Globulin 2.8 g/dL (1.7-4.1); Glucose 100 mg/dL (80-110); HDL Cholesterol 40 mg/dL (40-60); HEMOLYSIS < 15 (0-50); LDL Cholesterol Calculated 74 mg/dL (<100); Sodium 138 mmol/L (137-145); Total Protein 6.7 g/dL (6.3-8.2); Triglycerides 57 mg/dL (35-150)
== END ==
PROVIDERS: PCP Family Medicine; Referring Provider Internal Medicine Cardiovascular Disease; Visit Provider Internal Medicine Cardiovascular Disease
DX: E78.6 Lipoprotein deficiency (principal); Z51.81 Encounter for therapeutic drug level monitoring; Z79.899 Other long term (current) drug therapy
CPT/HCPCS: 36415; 80053; 80061

== ENCOUNTER → 2021-05-18 09:18 | Outpatient (CLI) | payer MEDICARE, SELFPAY | PROVIDERS: PCP Family Medicine; Referring Provider Family Medicine; Visit Provider Family Medicine | DX: E03.9 Hypothyroidism, unspecified (principal) | CPT/HCPCS: 36415; 84443 ==

== ENCOUNTER → 2021-05-27 06:59 | Outpatient (CLI) | payer MEDICARE, SELFPAY ==
[2021-05-27 08:25] LABS: BUN Creatinine Ratio 23.9 (6-22); Blood Urea Nitrogen 17 mg/dL (9-20); Carbon Dioxide 28 mmol/L (22-32); Chloride 106 mmol/L (98-107); Estimated Glomerular Filt Rate > 60.0 mL/min (>60); Glucose 103 mg/dL (80-110); HEMOLYSIS < 15 (0-50); Potassium 3.9 mmol/L (3.4-5.1); Sodium 140 mmol/L (137-145)
== END ==
PROVIDERS: PCP Family Medicine; Referring Provider Internal Medicine Cardiovascular Disease; Visit Provider Internal Medicine Cardiovascular Disease
DX: I48.0 Paroxysmal atrial fibrillation (principal)
CPT/HCPCS: 36415; 80048

== ENCOUNTER → 2021-09-04 10:39 | Outpatient (CLI) | payer MEDICARE, SELFPAY ==
[2021-09-04] MEDS: COVID-19 VACC #3, MRNA(MOD) 50 MCG/0.25 ML VIAL IM (10:54)
== END ==
PROVIDERS: PCP Family Medicine; Visit Provider Internal Medicine
DX: Z23 Encounter for immunization (principal)
CPT/HCPCS: 0013A; 91301

== ENCOUNTER → 2021-12-14 13:10 | Outpatient (CLI) | payer MEDICARE, SELFPAY ==
--- NOTE | 2021-12-14 13:12 | DI.RAD.S_ITS ---
PROCEDURE: XR CHEST 2V INDICATIONS: cough TECHNIQUE: 2 views of the chest were acquired. COMPARISON: [facility], CR, XR CHEST 1V, 03/09/2020, 0:32. FINDINGS: Surgical changes and devices: None. Lungs and pleura: Mild pulmonary vascular congestion is seen. No definite focal infiltrate. No pleural effusions or pneumothorax. Mediastinum: Mediastinal contours are normal. Heart size is enlarged. Bones and chest wall: No suspicious bony abnormalities. Soft tissues appear unremarkable. IMPRESSION: Cardiomegaly and mild congestion. No definite focal infiltrate. No pleural effusion or pneumothorax. Dictated by: Tyler Blas M.D. on 12/14/2021 at 13:57 Approved by: Tyler Blas M.D. on 12/14/2021 at 13:58
== END ==
PROVIDERS: PCP Family Medicine; Referring Provider Nurse Practitioner Family; Visit Provider Nurse Practitioner Family
DX: R05.9 Cough, unspecified (principal); I51.7 Cardiomegaly; R09.89 Other specified symptoms and signs involving the circulatory and respiratory systems
CPT/HCPCS: 71046

== ENCOUNTER → 2022-02-26 07:00 | Outpatient (CLI) | payer MEDICARE, SELFPAY ==
[2022-02-26 08:53] LABS: BUN Creatinine Ratio 22.2 (6-22); Blood Urea Nitrogen 18 mg/dL (9-20); Calcium 8.8 mg/dL (8.4-10.2); Carbon Dioxide 29 mmol/L (22-32); Chloride 104 mmol/L (98-107); Estimated Glomerular Filt Rate > 60 mL/min (>60); Glucose 102 mg/dL (80-110); HEMOLYSIS < 15 (0-50); Potassium 4.2 mmol/L (3.4-5.1); Sodium 141 mmol/L (137-145)
== END ==
PROVIDERS: PCP Family Medicine; Referring Provider Internal Medicine Cardiovascular Disease; Visit Provider Internal Medicine Cardiovascular Disease
DX: I48.0 Paroxysmal atrial fibrillation (principal)
CPT/HCPCS: 36415; 80048

== ENCOUNTER 2022-05-12 11:28 | Emergency (ER) | payer MEDICARE, SELFPAY ==
[2022-05-12] VITALS (11 sets, daily range): BP systolic 116–186; BP diastolic 69–97; PULSE 47–54; RESP 14–22; TEMP 35.7; O2SAT 95–100; BMI 26.9
--- NOTE | 2022-05-12 11:37 | DI.RAD.S_ITS ---
PROCEDURE: XR CHEST 1V INDICATIONS: chest pain TECHNIQUE: One view of the chest was acquired. COMPARISON: [facility], CR, XR CHEST 2V, 12/14/2021, 13:13. FINDINGS: Surgical changes and devices: None. Lungs and pleura: Lungs are clear. No pleural effusions or pneumothorax. Stable eventration of the right hemidiaphragm. No focal consolidation. Mediastinum: Mediastinal contours appear normal. Heart size is normal. Bones and chest wall: No suspicious bony lesions. Overlying soft tissues appear unremarkable. Advanced hypertrophic degenerative changes of the bilateral acromioclavicular joints. IMPRESSION: Chest without acute cardiopulmonary abnormalities. No focal airspace disease. Dictated by: Diogenes Carrillo M.D. on 05/12/2022 at 12:00 Approved by: Diogenes Carrillo M.D. on 05/12/2022 at 12:02
--- NOTE | 2022-05-12 12:10 | ED_ITS ---
HPI - Arrhythmia/Palpitations General Chief Complaint: Arrhythmia/Palpitations Stated Complaint: Hx of AFIB, dizzy x 2 days, high BP, sent by [facility] Time Seen by Provider: 05/12/22 11:52 Source: patient Mode of arrival: Ambulatory Related Data Home Medications Medication Instructions Recorded Confirmed metoprolol tartrate 50 mg tablet 25 mg PO BID 03/23/18 01/01/22 (Lopressor) flecainide 50 mg tablet 100 mg PO QAM 10/04/19 01/01/22 flecainide 50 mg tablet 50 mg PO QPM 12/28/19 01/01/22 Previous Rx's Medication Instructions Recorded albuterol sulfate 90 mcg/actuation 2 puff inhalation Q6H PRN 06/18/20 aerosol inhaler shortness of breath or wheezing #6.7 grams fluticasone propionate 220 1 puff inhalation BID #12 grams 06/18/20 mcg/actuation HFA aerosol inhaler (Flovent HFA) albuterol sulfate 90 mcg/actuation 2 puff inhalation Q6H PRN 12/14/21 aerosol inhaler shortness of breath or wheezing #6.7 grams fluticasone propionate 220 1 puff inhalation Q12H #12 grams 12/14/21 mcg/actuation HFA aerosol inhaler (Flovent HFA) atorvastatin 20 mg tablet See Rx Instructions .Route 02/23/22 .COMPLEX #90 tabs levothyroxine 75 mcg tablet See Rx Instructions .Route 02/23/22 .COMPLEX #90 tabs warfarin 5 mg tablet See Rx Instructions .Route 02/23/22 .COMPLEX #90 tabs Allergies Allergy/AdvReac Type Severity Reaction Status Date / Time No Known Drug Allergies Allergy Verified 05/12/22 11:35 Patient History Medical History (Updated 04/27/21 @ 13:07 by Johana Chong MD) Atrial fibrillation Chicken pox (~1949) Chronic anticoagulation Colles' fracture (1974) Colon polyps (2004) Empyema lung (~1988) Fracture of left pelvis (1974) Hearing loss (1999) Measles (~1950) Surgical History Anesthesia Empyema of lung (~1988) H/O cardiac radiofrequency ablation History of orthopedic surgery (1974) Status post cholecystectomy (1976) Family History Grandfather Heart disease Bronchial pneumonia Grandmother Stroke Mother Age: 103 Shortness of breath Suspected cervical cancer Skin cancer Grandfather Stroke Diabetes mellitus Father Asbestos exposure Smoker Grandmother Diabetes mellitus Sister No problems noted. Social History marital status: number of children: 2 household members: spouse lives independently: Yes caregiver/support person: No housing: house pets and animals: No education level: vocational Smoking Status: Never smoker second hand exposure: No alcohol intake: current substance use type: does not use Smoking Status: Never smoker alcohol intake frequency: 0-2 drinks per day Substance Use Type: does not use Exam Initial Vital Signs Initial Vital Signs: Vital Signs Temperature 96.3 F L 05/12/22 11:35 Pulse Rate 54 L 05/12/22 11:35 Respiratory Rate 14 05/12/22 11:35 Blood Pressure 186/97 H 05/12/22 11:35 Pulse Oximetry 100 05/12/22 11:35 Oxygen Delivery Method 05/12/22 11:35 Course Orders Ordered: ED Orders 05/12/22 11:37 XR chest 1V Stat EKG-12 Lead Stat 05/12/22 11:50 Complete Blood Count AUTO DIFF Stat Comprehensive Metabolic Panel Stat Lipase Stat Magnesium Stat Partial Thromboplastin Time Stat Prothrombin Time INR Stat Troponin & CK Cardiac Panel Stat Vital Signs Vital signs: Vital Signs - 8 hr 05/12/22 11:35 05/12/22 11:47 05/12/22 11:47 Temperature 96.3 F L Pulse Rate 54 L 50 L Respiratory Rate 14 Blood Pressure 186/97 H 132/79 Pulse Oximetry 100 97 Oxygen Delivery Method Room Air 05/12/22 12:00 05/12/22 12:00 Temperature Pulse Rate 48 L Respiratory Rate 22 Blood Pressure 131/80 Pulse Oximetry 97 Oxygen Delivery Method MDM - Arrhythmia/Palpitations Lab Data Result diagrams: 05/12/22 11:50 05/12/22 11:50 Discharge Plan Departure Prescriptions: No Action Flovent HFA 220 mcg/actuation HFA aerosol inhaler 1 puff INHALATION BID Qty: 12 0RF albuterol sulfate 90 mcg/actuation HFA aerosol inhaler 2 puff INHALATION Q6H PRN (Reason: shortness of breath or wheezing) Qty: 6.7 0RF Rx Instructions: Please dispense with spacer and instructions albuterol sulfate 90 mcg/actuation HFA aerosol inhaler 2 puff inhalation Q6H PRN (Reason: shortness of breath or wheezing) Qty: 6.7 0RF Flovent HFA 220 mcg/actuation HFA aerosol inhaler 1 puff inhalation Q12H Qty: 12 0RF Rx Instructions: administer with spacer flecainide 50 mg tablet 100 mg PO QAM Rx Instructions: Take 2 tabs in the am and 1 tab in the pm warfarin 5 mg tablet See Rx Instructions .ROUTE .COMPLEX Qty: 90 0RF Dose Instruction: take 1 tablet by mouth daily Rx Instructions: take 1 tablet by mouth daily levothyroxine 75 mcg tablet See Rx Instructions .ROUTE .COMPLEX Qty: 90 0RF Dose Instruction: take 1 tablet by mouth daily Rx Instructions: take 1 tablet by mouth daily atorvastatin 20 mg tablet See Rx Instructions .ROUTE .COMPLEX Qty: 90 0RF Dose Instruction: take 1 tablet by mouth at bedtime Rx Instructions: take 1 tablet by mouth at bedtime metoprolol tartrate [Lopressor] 50 mg tablet 25 mg PO BID flecainide 50 mg tablet 50 mg PO QPM Label Comments: take 2 tablets by mouth every morning and 1 tablet every evening Referrals: Johana Chong MD [Primary Care Provider] -
[2022-05-12 12:13] LABS: INR 2.2 (0.9-1.3); Prothrombin Time 25.4 SECONDS (10.1-12.7)
[2022-05-12 12:16] LABS: Add Manual Diff / Slide Review NO; Basophils Absolute Auto 0 /uL (0-100); Basophils Percent Auto 0.7 % (0-2); Eosinophils Absolute Auto 400 /uL (0-450); Eosinophils Percent Auto 7.1 % (2-4); Hematocrit 42.5 % (41-53); Hemoglobin 14.4 g/dL (13.5-17.5); Lymphocytes Absolute Auto 1200 /uL (1100-4500); Lymphocytes Percent Auto 21.8 % (25-40); Mean Corpuscular HGB Conc 33.9 % (30-36); Mean Corpuscular Hemoglobin 33.5 PG (26-34); Mean Corpuscular Volume 98.9 fL (80-100); Monocytes Absolute Auto 500 /uL (0-900); Monocytes Percent Auto 9.1 % (3-14); Neutrophils Absolute Auto 3300 /uL (1500-7000); Neutrophils Percent Auto 61.3 % (50-75); PTT Partial Thromboplastin Tim 41 SECONDS (26.4-36.2); Platelet Count 167 X10^3/uL (150-400); Red Cell Distribution Width 13.5 % (11.6-14.8); White Blood Cell Count 5.4 X10^3/uL (4.5-11.0)
[2022-05-12 12:21] LABS: Alanine Aminotransferase 36 IU/L (<50); Albumin 4.2 g/dL (3.5-5.0); Albumin Globulin Ratio 1.4 (1.0-2.8); Alkaline Phosphatase 77 U/L (38-126); Aspartate Aminotransferase 35 IU/L (17-59); BUN Creatinine Ratio 19.3 (6-22); Blood Urea Nitrogen 16 mg/dL (9-20); Calcium 8.8 mg/dL (8.4-10.2); Carbon Dioxide 28 mmol/L (22-32); Chloride 105 mmol/L (98-107); Creatine Kinase 62 U/L (55-170); Estimated Glomerular Filt Rate > 60 mL/min (>60); Globulin 2.9 g/dL (1.7-4.1); Glucose 104 mg/dL (80-110); HEMOLYSIS < 15 (0-50); Lipase 97 U/L (23-300); Potassium 3.9 mmol/L (3.4-5.1); Sodium 139 mmol/L (137-145); Total Protein 7.1 g/dL (6.3-8.2)
[2022-05-12 12:32] LABS: Troponin I < 0.012 ng/mL (0.01-0.034)
--- NOTE | 2022-05-12 12:43 | ED.ARRPALP ---
HPI - Arrhythmia/Palpitations General Chief Complaint: Arrhythmia/Palpitations Stated Complaint: Hx of AFIB, dizzy x 2 days, high BP, sent by [facility] Time Seen by Provider: 05/12/22 11:52 Source: patient Mode of arrival: Ambulatory History of Present Illness HPI narrative: Patient is a 76-year-old history of atrial fibrillation on warfarin rhythm controlled on flecainide and metoprolol presenting today with dizziness lightheadedness. He says it started yesterday every time he stands up he gets weak and dizzy. He does not really have palpitations he does not feel like he is in AFib. Does not really have any shortness of breath numbness tingling or weakness. He had a very mild headache this morning but is gone now. It just does not feel quite right. He says it heart rate is normally in the 60s here in the ED in the high 40s. Related Data Home Medications Medication Instructions Recorded Confirmed metoprolol tartrate 50 mg tablet 25 mg PO BID 03/23/18 01/01/22 (Lopressor) flecainide 50 mg tablet 100 mg PO QAM 10/04/19 01/01/22 flecainide 50 mg tablet 50 mg PO QPM 12/28/19 01/01/22 Previous Rx's Medication Instructions Recorded albuterol sulfate 90 mcg/actuation 2 puff inhalation Q6H PRN 06/18/20 aerosol inhaler shortness of breath or wheezing #6.7 grams fluticasone propionate 220 1 puff inhalation BID #12 grams 06/18/20 mcg/actuation HFA aerosol inhaler (Flovent HFA) albuterol sulfate 90 mcg/actuation 2 puff inhalation Q6H PRN 12/14/21 aerosol inhaler shortness of breath or wheezing #6.7 grams fluticasone propionate 220 1 puff inhalation Q12H #12 grams 12/14/21 mcg/actuation HFA aerosol inhaler (Flovent HFA) atorvastatin 20 mg tablet See Rx Instructions .Route 02/23/22 .COMPLEX #90 tabs levothyroxine 75 mcg tablet See Rx Instructions .Route 02/23/22 .COMPLEX #90 tabs warfarin 5 mg tablet See Rx Instructions .Route 02/23/22 .COMPLEX #90 tabs Allergies Allergy/AdvReac Type Severity Reaction Status Date / Time No Known Drug Allergies Allergy Verified 05/12/22 11:35 Review of Systems Review of Systems Narrative: GENERAL: Denies chills, fatigue, malaise, fever, sweats, travel HEENT: Denies sinus pain, ear pain, sore throat, difficulty swallowing, neck pain RESPIRATORY: Denies dyspnea, cough, wheezing, hemoptysis, sputum. CARDIOVASCULAR: See HPI GASTROINTESTINAL: Denies nausea, vomiting, abdominal pain, diarrhea, constipation, melena. : Denies dysuria, frequency, incontinence, hematuria, urinary retention, flank pain. MUSCULOSKELETAL: Denies weakness, joint pain, or bony pain SKIN: No rash, no erythema, no pruritus NEUROLOGIC: Denies weakness, dizziness, headache, numbness, change in speech, confusion PSYCHIATRIC: No concerning psychosocial issues. 12 point review of systems is negative except for those stated above and HPI Patient History Medical History (Updated 05/12/22 @ 14:12 by Gabrielle Gaspar DO) Atrial fibrillation Chicken pox (~1949) Chronic anticoagulation Colles' fracture (1974) Colon polyps (2004) Empyema lung (~1988) Fracture of left pelvis (1974) Hearing loss (1999) Measles (~1949) Surgical History Anesthesia Empyema of lung (~1988) H/O cardiac radiofrequency ablation History of orthopedic surgery (1974) Status post cholecystectomy (1976) Family History Grandfather Heart disease Bronchial pneumonia Grandmother Stroke Mother Age: 103 Shortness of breath Suspected cervical cancer Skin cancer Grandfather Stroke Diabetes mellitus Father Asbestos exposure Smoker Grandmother Diabetes mellitus Sister No problems noted. Social History marital status: number of children: 2 household members: spouse lives independently: Yes caregiver/support person: No housing: house pets and animals: No education level: vocational Smoking Status: Never smoker second hand exposure: No alcohol intake: current substance use type: does not use Smoking Status: Never smoker alcohol intake frequency: 0-2 drinks per day Substance Use Type: does not use Exam Initial Vital Signs Initial Vital Signs: Vital Signs Temperature 96.3 F L 05/12/22 11:35 Pulse Rate 54 L 05/12/22 11:35 Respiratory Rate 14 05/12/22 11:35 Blood Pressure 186/97 H 05/12/22 11:35 Pulse Oximetry 100 05/12/22 11:35 Oxygen Delivery Method 05/12/22 11:35 GENERAL: Alert pleasant 76 year old male and in no acute distress. HEENT: Head atraumatic,EOMI, pupils reactive, face symmetric, moist mucous membranes CARDIOVASCULAR: Regular rate and rhythm without murmurs, rubs or gallops. RESPIRATORY: Breath sounds equal bilaterally, no wheezes rales or rhonchi. ABDOMEN: Soft, nontender. Normoactive bowel sounds all 4 quadrants. No guarding or rebound. EXTREMITIES: Normal range of motion, no clubbing or edema. Neurovascularly intact NEUROLOGICAL: Alert and oriented x4.Normal gait and speech. Cranial nerves II through XII grossly intact. Good [id number], good [id number], strength equal bilaterally, no dysarthria or aphasia, sensation in tact to soft touch bilaterally, no visual changes, no facial droop SKIN: Warm, dry, no laceration, no petechiae, no rashes or lesions. Course Orders Ordered: ED Orders 05/12/22 11:37 XR chest 1V Stat EKG-12 Lead Stat 05/12/22 11:50 Complete Blood Count AUTO DIFF Stat Comprehensive Metabolic Panel Stat Lipase Stat Magnesium Stat Partial Thromboplastin Time Stat Prothrombin Time INR Stat Troponin & CK Cardiac Panel Stat 05/12/22 12:53 CT head/brain wo con Stat Vital Signs Vital signs: Vital Signs - 8 hr 05/12/22 11:47 05/12/22 11:47 05/12/22 12:00 Pulse Rate 50 L Respiratory Rate Blood Pressure 132/79 131/80 Pulse Oximetry 97 Oxygen Delivery Method 05/12/22 12:00 05/12/22 12:15 05/12/22 12:30 Pulse Rate 48 L 47 L 47 L Respiratory Rate 22 19 21 Blood Pressure Pulse Oximetry 97 97 96 Oxygen Delivery Method 05/12/22 12:32 05/12/22 12:32 05/12/22 12:45 Pulse Rate 52 L 50 L Respiratory Rate 16 22 Blood Pressure 120/69 Pulse Oximetry 95 96 Oxygen Delivery Method 05/12/22 13:04 05/12/22 13:15 07/27/22 13:30 Pulse Rate 51 L 48 L 48 L Respiratory Rate 22 19 17 Blood Pressure Pulse Oximetry 98 97 96 Oxygen Delivery Method 05/12/22 14:18 Pulse Rate 49 L Respiratory Rate 20 Blood Pressure 116/71 Pulse Oximetry 98 Oxygen Delivery Method Room Air MDM - Arrhythmia/Palpitations Lab Data Result diagrams: 05/12/22 11:50 05/12/22 11:50 Labs: Lab Results 05/12/22 05/12/22 05/12/22 Range/Units 11:50 11:50 11:50 WBC 5.4 (4.5-11.0) X10^3/uL RBC 4.30 L (4.5-5.9) X10^6/uL Hgb 14.4 (13.5-17.5) g/dL Hct 42.5 (41-53) % MCV 98.9 (80-100) fL MCH 33.5 (26-34) PG MCHC 33.9 (30-36) % RDW 13.5 (11.6-14.8) % Plt Count 167 (150-400) X10^3/uL Neut % (Auto) 61.3 (50-75) % Lymph % (Auto) 21.8 L (25-40) % [place] % (Auto) 9.1 (3-14) % Eos % (Auto) 7.1 H (2-4) % Baso % (Auto) 0.7 (0-2) % Neut # (Auto) 3300 (8145-4537) /uL Lymph # (Auto) 1200 (4452-9702) /uL [place] # (Auto) 500 (0-900) /uL Eos # (Auto) 400 (0-450) /uL Baso # (Auto) 0 (0-100) /uL PT 25.4 H (10.1-12.7) SECONDS INR 2.2 H (0.9-1.3) APTT 41 H (26.4-36.2) SECONDS Sodium 139 (137-145) mmol/L Potassium 3.9 (3.4-5.1) mmol/L Chloride 105 (98-107) mmol/L Carbon Dioxide 28 (22-32) mmol/L BUN 16 (9-20) mg/dL Creatinine 0.83 (0.66-1.25) mg/dL Estimated GFR > 60 (>60) mL/min BUN/Creatinine Ratio 19.3 (6-22) Glucose 104 (80-110) mg/dL Calcium 8.8 (8.4-10.2) mg/dL Magnesium 2.0 (1.6-2.3) mg/dL Total Bilirubin 1.0 (0.2-1.3) mg/dL AST 35 (17-59) IU/L ALT 36 (<50) IU/L Alkaline Phosphatase 77 (38-126) U/L Total Creatine Kinase 62 (55-170) U/L CK-MB (CK-2) TNP CK-MB (CK-2) Rel Index TNP Troponin I < 0.012 (0.01-0.034) ng/mL Total Protein 7.1 (6.3-8.2) g/dL Albumin 4.2 (3.5-5.0) g/dL Globulin 2.9 (1.7-4.1) g/dL Albumin/Globulin Ratio 1.4 (1.0-2.8) Lipase 97 (23-300) U/L Imaging Data CT scan - head: Radiologist's Impresson: CT Scan Report Signed Patient: Sajan Carmona MR#: [id number] : 1945 Acct:[id number] Age/Sex: 76 / M Date of Service: 05/12/22 Loc: Accession Number: [id number] ?? Procedure: CT head/brain wo con Ordering Provider: Gabrielle Gaspar D.O. PROCEDURE:? CT HEAD/BRAIN WO CON ? INDICATIONS:? dizzy on coumadin ? TECHNIQUE:? Noncontrast 4.5 mm thick angled axial sections acquired from the foramen magnum to the vertex, with coronal and sagittal reformats.? For radiation dose reduction, the following was used:? automated exposure control, adjustment of mA and/or kV according to patient size.? ? COMPARISON:? None. ? FINDINGS:? Image quality:? Excellent.? ? CSF spaces:? Basal cisterns are patent.? No extra-axial fluid collections.? The ventricles are symmetric in size and shape.? ? Brain:? No intracranial bleeds or masses.? There is cerebral volume loss for age, with resultant ventricular and sulcal prominence.? There are periventricular and deep white matter chronic small vessel ischemic changes.? There is intracranial internal carotid artery atherosclerosis.? ? Skull and face:? Calvarium and visualized facial bones appear intact, without suspicious lesions.? ? Sinuses:? Visualized sinuses and mastoids are clear.? ? IMPRESSION:? No evidence acute intracranial process. ? ? Dictated by: Henry Espinosa M.D. on 05/12/2022 at 13:13 ECG Data Interpretation: Sinus bradycardia rate 50 p.r. interval 248 QRS [address] changes MDM Narrative Medical decision making narrative: Patient really has no focal deficits he has some mild dizziness he has be quite bradycardic he is on both flecainide and metoprolol. He is able to stand and ambulate but just does not feel quite right. No focal deficits. I suspect is the bradycardia that is not making him feel well. 2331 Dr. Cruz updated patient's symptoms test results recommends decreasing metoprolol to 25 mg once daily Discharge Plan Departure Patient Disposition: Home Clinical Impression: Bradycardia Instructions: DI for Bradycardia Activity Restrictions/Additional Instructions: *You have been diagnosed with bradycardia *What to do: At this time her slow heart rate is contributing to your dizziness or lightheadedness. *Continue to take medications as directed Metoprolol 25 mg once daily Continue flecainide as prescribed *Follow up with your primary care provider in 2-3 days or call [phone] *Return to ER if you should have increasing dizziness lightheadedness shortness of breath weakness numbness tingling or any new, worsening or concerning symptoms Prescriptions: No Action Flovent HFA 220 mcg/actuation HFA aerosol inhaler 1 puff INHALATION BID Qty: 12 0RF albuterol sulfate 90 mcg/actuation HFA aerosol inhaler 2 puff INHALATION Q6H PRN (Reason: shortness of breath or wheezing) Qty: 6.7 0RF Rx Instructions: Please dispense with spacer and instructions albuterol sulfate 90 mcg/actuation HFA aerosol inhaler 2 puff inhalation Q6H PRN (Reason: shortness of breath or wheezing) Qty: 6.7 0RF Flovent HFA 220 mcg/actuation HFA aerosol inhaler 1 puff inhalation Q12H Qty: 12 0RF Rx Instructions: administer with spacer flecainide 50 mg tablet 100 mg PO QAM Rx Instructions: Take 2 tabs in the am and 1 tab in the pm warfarin 5 mg tablet See Rx Instructions .ROUTE .COMPLEX Qty: 90 0RF Dose Instruction: take 1 tablet by mouth daily Rx Instructions: take 1 tablet by mouth daily levothyroxine 75 mcg tablet See Rx Instructions .ROUTE .COMPLEX Qty: 90 0RF Dose Instruction: take 1 tablet by mouth daily Rx Instructions: take 1 tablet by mouth daily atorvastatin 20 mg tablet See Rx Instructions .ROUTE .COMPLEX Qty: 90 0RF Dose Instruction: take 1 tablet by mouth at bedtime Rx Instructions: take 1 tablet by mouth at bedtime metoprolol tartrate [Lopressor] 50 mg tablet 25 mg PO BID flecainide 50 mg tablet 50 mg PO QPM Label Comments: take 2 tablets by mouth every morning and 1 tablet every evening Referrals: Johana Chong MD [Primary Care Provider] - Tamir Cruz MD [Physician] - Visit Report Forms: Patient Portal/API
--- NOTE | 2022-05-12 12:53 | DI.CT.S_ITS ---
PROCEDURE: CT HEAD/BRAIN WO CON INDICATIONS: dizzy on coumadin TECHNIQUE: Noncontrast 4.5 mm thick angled axial sections acquired from the foramen magnum to the vertex, with coronal and sagittal reformats. For radiation dose reduction, the following was used: automated exposure control, adjustment of mA and/or kV according to patient size. COMPARISON: None. FINDINGS: Image quality: Excellent. CSF spaces: Basal cisterns are patent. No extra-axial fluid collections. The ventricles are symmetric in size and shape. Brain: No intracranial bleeds or masses. There is cerebral volume loss for age, with resultant ventricular and sulcal prominence. There are periventricular and deep white matter chronic small vessel ischemic changes. There is intracranial internal carotid artery atherosclerosis. Skull and face: Calvarium and visualized facial bones appear intact, without suspicious lesions. Sinuses: Visualized sinuses and mastoids are clear. IMPRESSION: No evidence acute intracranial process. Dictated by: Henry Espinosa M.D. on 05/12/2022 at 13:13 Approved by: Henry Espinosa M.D. on 05/12/2022 at 13:13
== END 2022-05-12 14:19 | disposition home or self-care (01) ==
PROVIDERS: Emergency Provider Emergency Medicine; PCP Family Medicine
DX: R00.1 Bradycardia, unspecified (principal); R42 Dizziness and giddiness; Z79.01 Long term (current) use of anticoagulants
CPT/HCPCS: 36415; 70450; 71045; 80053; 82550; 83690; 83735; 84484; 85025; 85610; 85730; 93005; 99283; 99284

== ENCOUNTER → 2022-08-27 10:36 | Outpatient (CLI) | payer MEDICARE, SELFPAY ==
[2022-08-27 15:34] LABS: BUN Creatinine Ratio 20.8 (6-22); Blood Urea Nitrogen 16 mg/dL (9-20); Calcium 8.8 mg/dL (8.4-10.2); Carbon Dioxide 30 mmol/L (22-32); Chloride 102 mmol/L (98-107); Estimated Glomerular Filt Rate > 60 mL/min (>60); Glucose 90 mg/dL (80-110); HEMOLYSIS < 15 (0-50); Potassium 4.7 mmol/L (3.4-5.1); Sodium 136 mmol/L (137-145)
== END ==
PROVIDERS: PCP Family Medicine; Referring Provider Nurse Practitioner; Visit Provider Nurse Practitioner
DX: I48.0 Paroxysmal atrial fibrillation (principal)
CPT/HCPCS: 36415; 80048

== ENCOUNTER → 2022-10-14 06:57 | Outpatient (CLI) | payer MEDICARE, SELFPAY ==
[2022-10-14 08:40] LABS: BUN Creatinine Ratio 19.7 (6-22); Blood Urea Nitrogen 15 mg/dL (9-20); Calcium 8.5 mg/dL (8.4-10.2); Carbon Dioxide 30 mmol/L (22-32); Chloride 102 mmol/L (98-107); Estimated Glomerular Filt Rate > 60 mL/min (>60); Glucose 85 mg/dL (80-110); HEMOLYSIS < 15 (0-50); Sodium 140 mmol/L (137-145)
[2022-10-14 08:49] LABS: Cholesterol 139 mg/dL (140-199); HDL Cholesterol 43 mg/dL (40-60); LDL Cholesterol Calculated 79 mg/dL (<100); Triglycerides 83 mg/dL (35-150)
[2022-10-14 09:08] LABS: Thyroid Stimulating Hormone 5.14 uIU/mL (0.47-4.68)
== END ==
PROVIDERS: PCP Family Medicine; Referring Provider Internal Medicine Cardiovascular Disease; Visit Provider Internal Medicine Cardiovascular Disease
DX: I10 Essential (primary) hypertension (principal); E03.9 Hypothyroidism, unspecified
CPT/HCPCS: 36415; 80048; 80061; 84443

== ENCOUNTER → 2022-10-27 11:02 | Outpatient (CLI) | payer MEDICARE, SELFPAY ==
--- NOTE | 2022-10-27 11:05 | DI.RAD.S_ITS ---
PROCEDURE: XR KNEE LT 3V INDICATIONS: Left knee instability; swelling TECHNIQUE: 3 views of the knee were acquired. COMPARISON: None. FINDINGS: Bones: No fractures or dislocations. No suspicious bony lesions. Moderate medial compartmental joint space narrowing with small marginal osteophyte Soft tissues: No joint effusion. No suspicious soft tissue calcifications. IMPRESSION: Moderate medial compartment osteoarthritis Approved by: Michael Galarza M.D. on 10/27/2022 at 16:48
== END ==
PROVIDERS: PCP Family Medicine; Referring Provider Physician Assistant; Visit Provider Physician Assistant
DX: M25.562 Pain in left knee (principal); M17.12 Unilateral primary osteoarthritis, left knee
CPT/HCPCS: 73562

== ENCOUNTER → 2022-11-18 08:57 | Outpatient (CLI) | payer MEDICARE, SELFPAY ==
--- NOTE | 2022-11-18 | DI.ECHO.S_ITS ---
[facility] +---------+ : : [address] : : : : [id number] : : : : Phone: [phone] Echocardiogram Report + + :Name: SERGIO MILLS Study Date: 11/18/2022 Height: 70 in : :[facility] ReadingLocation: Weight: 190 lb : : Gender: Male BSA: 2.0 m2 : :: 1945 Age: 77 yrs BP: 150/87 mmHg: :Reason For Study: THORACIC AORTIC ECTASIA : :Ordering Physician: LEONID, : :CHARI Performed By: Sienna Dickinson : :Referring: CHARI JAQUEZ : + + Interpretation Summary 1) Normal left ventricular thickness, size, wall motion, and systolic function (EF 55-60%). 2) Mildly enlarged right ventricular size with normal function. 3) There is mild aortic regurgitation. 4) The ascending aorta is moderately enlarged at 4.5cm. 5) Compared to the Echo done 05/31/2019, ascending aorta enlargement has increased from 4.3cm to 4.5cm on this study. Procedure: A two-dimensional transthoracic echocardiogram with color flow and Doppler was performed. The study quality was technically adequate. Comparison is made with the echocardiogram of 05/31/2019. The patient was in sinus bradycardia with heart rates between 52-55 bpm during the exam. Left Ventricle: The left ventricle is normal in size and wall thickness. The ejection fraction is estimated to be 55-60%. Left ventricular systolic function appears normal without focal wall motion abnormalities. Diastolic parameters suggest a relaxation abnormality of the left ventricle, consistent with probable normal filling pressures. Right Ventricle: The right ventricle is mildly dilated. The right ventricular systolic function is normal. Atria: The left atrial size is normal. Right atrial size is normal. There is no Doppler evidence for an interatrial shunt. Mitral Valve: The mitral valve is normal in structure and function. There is mild mitral regurgitation. Aortic Valve: The aortic valve is trileaflet. The aortic valve opens well. There is no aortic valve stenosis. There is mild aortic regurgitation. Tricuspid Valve: The tricuspid valve is normal in structure and function. There is mild tricuspid regurgitation. The right ventricular systolic pressure is estimated to be at least 29 mmHg based on an estimated right atrial pressure of 3 mm Hg. Pulmonic Valve: The pulmonic valve is not well seen, but is grossly normal. There is mild pulmonic regurgitation. Great Vessels: The aortic root is mildly dilated. The ascending aorta is moderately enlarged. The IVC is of normal diameter and collapses greater than 50% with a sniff. This suggests a low right atrial pressure of 3 mm Hg. Pericardium/ Pleura There is no pericardial effusion. There is no pleural effusion. MMode/2D Measurements & Calculations LVIDd: 5.0 cm LVOT diam: 2.2 cm LVIDs: 3.1 cm Ao root diam: 4.2 cm FS: 38.6 % asc Aorta Diam: 4.5 cm IVSd: 0.90 cm Ao Arch Diam (Prox Trans): 3.4 cm LVPWd: 0.90 cm LV ovalle. diameter/BSA (cm/m^2): 2.5 LV sys. diameter/BSA (cm/m^2): 1.5 LA A2 area: 20.6 cm2 RA long axis: 5.9 cm LA A4 area: 21.3 cm2 RA area: 21.4 cm2 LA length (vol): 5.9 cm RA vol: 66.7 ml LA vol: 62.8 ml RA : 32.7 ml/m2 LA vol index: 30.8 ml/m2 IVC diam: 1.1 cm RVD1 (basal): 4.2 cm RVD2 (mid): 3.5 cm TAPSE: 2.7 cm Doppler Measurements & Calculations Ao V2 max: 114.4 cm/sec LVOT Max Aniceto: 73.2 cm/sec Ao V2 mean: 75.7 cm/sec LV V1 max P.1 mmHg Ao max P.2 mmHg LV V1 VTI: 15.2 cm Ao mean P.6 mmHg MARGARITA(I,D): 3.0 cm2 Ao V2 VTI: 19.3 cm MARGARITA(V,D): 2.4 cm2 sev ratio: 0.79 MARGARITA indexed to BSA (cm^2/m^2): 1.5 MV E max aniceto: 81.9 cm/sec TR max aniceto: 254.8 cm/sec MV A max aniceto: 53.8 cm/sec TR max P.0 mmHg MV E/A: 1.5 PA V2 max: 73.3 cm/sec Med Peak E' Aniceto: 6.7 cm/sec PA V2 mean: 50.5 cm/sec E/E' med: 12.2 PA mean P.1 mmHg Lat Peak E' Aniceto: 6.3 cm/sec PA pr(Accel): 17.3 mmHg E/E' lat: 13.0 E/e' average: 12.6 MV dec time: 0.17 sec SV(OT): 58.3 ml Reading Physician:09:48 AM
== END ==
PROVIDERS: PCP Family Medicine; Referring Provider Internal Medicine Cardiovascular Disease; Visit Provider Internal Medicine Cardiovascular Disease
DX: I77.810 Thoracic aortic ectasia (principal); I08.3 Combined rheumatic disorders of mitral, aortic and tricuspid valves; I77.89 Other specified disorders of arteries and arterioles
CPT/HCPCS: 93306

== ENCOUNTER → 2022-12-01 09:42 | Outpatient (CLI) | payer MEDICARE, SELFPAY ==
[2022-12-01 12:11] LABS: TSH w/ Reflex to FT4 3.04 uIU/mL (0.47-4.68)
== END ==
PROVIDERS: PCP Family Medicine; Referring Provider Family Medicine; Visit Provider Family Medicine
DX: E03.9 Hypothyroidism, unspecified (principal)
CPT/HCPCS: 36415; 84443

== ENCOUNTER → 2023-09-02 09:57 | Outpatient (CLI) | payer MEDICARE, SELFPAY ==
--- NOTE | 2023-09-02 09:58 | DI.RAD.S_ITS ---
PROCEDURE: XR CHEST 2V INDICATIONS: wheezing TECHNIQUE: 2 views of the chest were acquired. COMPARISON: [facility], , XR CHEST 1V, 05/12/2022, 11:40. FINDINGS: Surgical changes and devices: None. Lungs and pleura: Lungs are clear. No pleural effusions or pneumothorax. Mediastinum: Mediastinal contours are normal. Heart size is normal. Bones and chest wall: No suspicious bony abnormalities. Soft tissues appear unremarkable. IMPRESSION: No acute process. Dictated by: Shade Lepe M.D. on 09/02/2023 at 11:37 Approved by: Shade Lepe M.D. on 09/02/2023 at 11:38
== END ==
PROVIDERS: PCP Family Medicine; Referring Provider Family Medicine; Visit Provider Family Medicine
DX: R06.2 Wheezing (principal)
CPT/HCPCS: 71046

== ENCOUNTER → 2023-09-07 09:04 | Outpatient (CLI) | payer MEDICARE, SELFPAY | PROVIDERS: PCP Family Medicine; Referring Provider Family Medicine; Visit Provider Family Medicine | DX: R06.2 Wheezing (principal); J98.8 Other specified respiratory disorders | CPT/HCPCS: 94060; 94726; 94729 ==

== ENCOUNTER → 2023-09-19 09:00 | Outpatient (CLI) | payer MEDICARE, SELFPAY ==
[2023-09-19 10:18] LABS: Alanine Aminotransferase 42 IU/L (<50); Albumin 3.5 g/dL (3.5-5.0); Albumin Globulin Ratio 1.3 (1.0-2.8); Alkaline Phosphatase 65 U/L (38-126); Aspartate Aminotransferase 32 IU/L (17-59); BUN Creatinine Ratio 17.8 (6-22); Bilirubin Total 0.9 mg/dL (0.2-1.3); Blood Urea Nitrogen 13 mg/dL (9-20); Calcium 9.2 mg/dL (8.4-10.2); Carbon Dioxide 28 mmol/L (22-32); Chloride 105 mmol/L (98-107); Cholesterol 135 mg/dL (140-199); Estimated Glomerular Filt Rate > 60 mL/min (>60); Globulin 2.7 g/dL (1.7-4.1); Glucose 127 mg/dL (80-110); HDL Cholesterol 47 mg/dL (40-60); HEMOLYSIS < 15 (0-50); LDL Cholesterol Calculated 73 mg/dL (<100); Potassium 4.2 mmol/L (3.4-5.1); Sodium 139 mmol/L (137-145); Total Protein 6.2 g/dL (6.3-8.2); Triglycerides 76 mg/dL (35-150)
== END ==
PROVIDERS: PCP Family Medicine; Referring Provider Internal Medicine Cardiovascular Disease; Visit Provider Family Medicine
DX: I10 Essential (primary) hypertension (principal)
CPT/HCPCS: 36415; 80053; 80061

== ENCOUNTER → 2023-09-28 06:58 | Outpatient (CLI) | payer MEDICARE, SELFPAY ==
[2023-09-28 08:31] LABS: Hemoglobin A1C% w Est Avg Glu 5.6 % (4.0-6.0)
[2023-09-28 08:35] LABS: BUN Creatinine Ratio 20.7 (6-22); Blood Urea Nitrogen 17 mg/dL (9-20); Calcium 9.5 mg/dL (8.4-10.2); Carbon Dioxide 28 mmol/L (22-32); Chloride 104 mmol/L (98-107); Estimated Glomerular Filt Rate > 60 mL/min (>60); Glucose 101 mg/dL (80-110); HEMOLYSIS < 15 (0-50); Potassium 4.7 mmol/L (3.4-5.1); Sodium 137 mmol/L (137-145)
[2023-09-28 09:05] LABS: TSH w/ Reflex to FT4 3.71 uIU/mL (0.47-4.68)
== END ==
PROVIDERS: PCP Family Medicine; Referring Provider Internal Medicine Cardiovascular Disease; Visit Provider Internal Medicine Cardiovascular Disease
DX: I48.0 Paroxysmal atrial fibrillation (principal); Z51.81 Encounter for therapeutic drug level monitoring; E03.9 Hypothyroidism, unspecified; Z79.899 Other long term (current) drug therapy; Z13.1 Encounter for screening for diabetes mellitus
CPT/HCPCS: 36415; 80048; 83036; 84443

== ENCOUNTER → 2023-12-23 17:08 | Outpatient (CLI) | payer MEDICARE, SELFPAY ==
--- NOTE | 2023-12-23 17:10 | DI.MRI.S_ITS ---
PROCEDURE: MR KNEE LT WO CON INDICATIONS: pain TECHNIQUE: Noncontrast sagittal PD fast spin echo and T2 fast spin echo with fat saturation, sagittal 3-D FLASH with fat saturation; coronal T1 spin echo and PD fast spin echo with fat saturation, and axial PD fast spin echo with fat saturation through the knee. COMPARISON: None. FINDINGS: Image quality: Diagnostic Menisci: Medial: Complex tear and mild extrusion of the medial meniscus. Diminutive appearance at the posterior horn, particularly at the meniscal capsular junction. The root remains attached Lateral: Possible small horizontal tear. Cruciate ligaments: Ill-defined mid and distal fibers of the ACL. PCL appears intact Medial structures: MCL: Intact Pes anserine tendons: Intact Semimembranosus: [id number] insertional tendinopathy and possible small partial tear Lateral structures: LCL: Intact Biceps femoris: Intact IT band: Intact Popliteus tendon: Mild insertional tendinopathy Anterior structures: Extensor mechanism: Intact. Moderate prepatellar edema Fat pads: Mild Hoffa's fat pad edema Medial retinaculum: Intact. Trochlea: Unremarkable morphology. Bone and joint: Bones: Moderate edema is seen in the medial tibial plateau periphery. Cartilage: High-grade full-thickness cartilage loss throughout the medial compartment. Moderate heterogeneity and partial thickness fissures of the lateral compartment. Moderate heterogeneity also seen in the patellofemoral compartment, but with full-thickness fissures and mild subchondral edema involving the lateral facet. Joint space: Small joint effusion Galdamez's cyst: Small Galdamez's cyst Soft tissues: No significant vascular or other soft tissue pathology. IMPRESSION: There is a focal contusion at the periphery of the medial tibial plateau. Advanced degenerative changes in the medial compartment. Moderate degenerative changes of the patellofemoral compartment, with subchondral edema full-thickness fissures particularly involving the lateral facet. Ill-defined mid and distal fibers of the ACL, representing high-grade prior injury versus mucoid degeneration. Complex tear mild extrusion of the medial meniscus with a diminutive appearance of the posterior horn. Possible small horizontal tear of the lateral meniscus. [id number]-[id number] insertional tendinopathy and possible partial tear of the semimembranosus. Adjacent Galdamez's cyst. Small joint effusion. Moderate prepatellar edema. Mild Hoffa's fat pad edema. Approved by: Manav Terrell M.D. on 12/26/2023 at 10:02
== END ==
LOC: MRI 17:09
PROVIDERS: PCP Family Medicine; Referring Provider Family Medicine; Visit Provider Family Medicine
DX: S83.232A Complex tear of medial meniscus, current injury, left knee, initial encounter (principal); S80.02XA Contusion of left knee, initial encounter; M25.462 Effusion, left knee; M71.22 Synovial cyst of popliteal space [Baker], left knee; M79.4 Hypertrophy of (infrapatellar) fat pad; M25.562 Pain in left knee
CPT/HCPCS: 73721

== ENCOUNTER 2024-07-28 13:49 | Emergency (ER) | payer MEDICARE, SELFPAY ==
[2024-07-28 14:05] VITALS: PULSE 61; RESP 16; TEMP 36.6; O2SAT 98; BMI 27.2
--- NOTE | 2024-07-28 14:10 | DI.CT.S_ITS ---
PROCEDURE: CT HEAD/BRAIN WO CON INDICATIONS: fall on thinner. head lac TECHNIQUE: Noncontrast 4.5 mm thick angled axial sections acquired from the foramen magnum to the vertex, with coronal and sagittal reformats. For radiation dose reduction, the following was used: automated exposure control, adjustment of mA and/or kV according to patient size. COMPARISON: Located Within [facility], CT, CT CERVICAL SPINE WO CON, 07/28/2024, 14:23. Located Within [facility], CT, CT HEAD/BRAIN WO CON, 05/12/2022, 12:57. FINDINGS: Image quality: Mild streak artifact can be seen through the skull base. CSF spaces: Basal cisterns are patent. No extra-axial fluid collections. The ventricles are symmetric in size and shape. Brain: No intracranial bleeds or masses. There is cerebral volume loss for age, with resultant ventricular and sulcal prominence. There are periventricular and deep white matter chronic small vessel ischemic changes. There is intracranial internal carotid artery atherosclerosis. Skull and face: Mild scalp thickening can be seen in on the right laterally and superiorly. No associated calvarial fracture can be seen. Calvarium and visualized facial bones appear intact, without suspicious lesions. Sinuses: Visualized sinuses and mastoids are clear. IMPRESSION: Mild scalp thickening seen on the right posteriorly and laterally, which is attributed to a laceration. No displaced calvarial fracture can be seen. No acute intracranial hemorrhage is seen. No acute intracranial pathology. Dictated by: Umer Gayle M.D. on 07/28/2024 at 13:37 Approved by: Umer Gayle M.D. on 07/28/2024 at 13:38
--- NOTE | 2024-07-28 14:17 | DI.CT.S_ITS ---
PROCEDURE: CT CERVICAL SPINE WO CON INDICATIONS: fall hit head on thinners TECHNIQUE: Noncontrast 3 mm thick sections acquired from the skull base to the T4 level. Sagittal and coronal reformats were then constructed. For radiation dose reduction, the following was used: automated exposure control, adjustment of mA and/or kV according to patient size. COMPARISON: [facility], CT, CT HEAD/BRAIN WO CON, 07/28/2024, 14:23. FINDINGS: Image quality: This examination is somewhat limited by quantum mottle artifact. Bones: No fractures or dislocations. Visualized superior ribs are intact. Multiple levels of degenerative change can be seen, with at least moderate disc space narrowing seen at each lumbar level. There is a degree of fusion seen at the C3-C4 level. Multiple levels of significant facet hypertrophy can be seen. Soft tissues: Prevertebral soft tissues are normal in thickness. No paravertebral hematomas. No apical pneumothoraces. At least 1 calcified granuloma can be seen superiorly and on the right. IMPRESSION: No displaced fracture or traumatic subluxation. Significant underlying cervical spine degenerative change can be seen. Dictated by: Umer Gayle M.D. on 07/28/2024 at 13:38 Approved by: Umer Gayle M.D. on 07/28/2024 at 13:40
--- NOTE | 2024-07-28 15:01 | ED_ITS ---
HPI - Fall General Chief Complaint: Trauma Stated Complaint: Fell and hit the back of head may need stitches Time Seen by Provider: 07/28/24 15:00 Source: patient Mode of arrival: Family Vehicle History of Present Illness HPI Narrative: Patient is a pleasant 79-year-old male presents to the emergency room department with a friend of his. Patient was out in the [place], they were some cutting down some trees, there was a tree that actually been cut down, they were removing it it started rolling, patient tried to step of the way lost his balance and fell back kind of rolling a little bit and struck his head on a rock that was under some foliage. No loss of consciousness. The patient was able to get up under his own power. No dizziness, no weakness, no nausea, no vomiting. No blurred vision, no double vision, currently does not have a headache, currently does not really neck pain. Sustained a laceration to the right occipital area. Brought into the emergency department further care and evaluation. Patient takes Eliquis for atrial fibrillation. CT scan of the head CT scan of the neck Related Data Home Medications Medication Instructions Recorded Confirmed metoprolol tartrate 50 mg tablet 25 mg PO DAILY 10/27/22 12/21/23 (Lopressor) valsartan 80 mg tablet 80 mg PO DAILY 10/27/22 12/21/23 apixaban 5 mg tablet (Eliquis) 5 mg PO BID AFib 09/02/23 12/21/23 flecainide 50 mg tablet 50 mg PO BID AFib 09/02/23 12/21/23 Previous Rx's Medication Instructions Recorded atorvastatin 20 mg tablet See Rx Instructions .Route 02/23/22 .COMPLEX #90 tabs albuterol sulfate 90 mcg/actuation See Rx Instructions inhalation Q6H 05/30/23 aerosol inhaler PRN shortness of breath or wheezing #8.5 grams apixaban 5 mg tablet 5 mg PO BID #180 tabs 09/01/23 fluticasone propionate 220 1 puff inhalation Q12H #12 grams 09/02/23 mcg/actuation HFA aerosol inhaler (Flovent HFA) levothyroxine 88 mcg tablet 88 mcg PO DAILY #90 tabs 06/14/24 Allergies Allergy/AdvReac Type Severity Reaction Status Date / Time No Known Drug Allergies Allergy Verified 12/21/23 09:20 Review of Systems Review of Systems Narrative: Negative except as above Musculoskeletal Comments: Laceration that he sustained after a fall to the right occipital area Patient History Medical History COPD (chronic obstructive pulmonary disease) Chronic anticoagulation Atrial fibrillation Chicken pox (~1949) Measles (~1949) Empyema lung (~1988) Hearing loss (1999) Colon polyps (2004) Fracture of left pelvis (1974) Colles' fracture (1974) Surgical History H/O cardiac radiofrequency ablation History of orthopedic surgery (1974) Anesthesia Empyema of lung (~1988) Status post cholecystectomy (1976) Family History Grandfather Heart disease Bronchial pneumonia Grandmother Stroke Mother Age: 105 Shortness of breath Suspected cervical cancer Skin cancer Grandfather Stroke Diabetes mellitus Father Asbestos exposure Smoker Grandmother Diabetes mellitus Sister No problems noted. Social History marital status: number of children: 2 household members: spouse lives independently: Yes caregiver/support person: No housing: house pets and animals: No education level: vocational Smoking Status: Never smoker second hand exposure: No alcohol intake: current substance use type: does not use Smoking Status: Never smoker alcohol intake frequency: 0-2 drinks per day Substance Use Type: does not use Exam Initial Vital Signs Initial Vital Signs: Vital Signs Temperature 97.8 F 07/28/24 14:05 Pulse Rate 61 07/28/24 14:05 Respiratory Rate 16 07/28/24 14:05 Pulse Oximetry 98 07/28/24 14:05 Oxygen Delivery Method Room Air 07/28/24 14:05 Reviewed Const General: cooperative, healthy appearing, comfortable, well developed, well groomed, No acute distress and No in distress Nutritional Appearance: average body habitus HENNY Head: hematoma, laceration (Right occipital) and scalp tenderness Eyes General: Yes appearance normal, both eyes and all related structures Pupils: PERRL EOM: EOM intact bilaterally Neck Neck: normal visual inspection, full ROM, supple, No midline deformity and No tender Skin Other: 2 cm laceration posterior right scalp Neuro Other: Alert oriented no acute distress, cognition, cranial nerves, speech, gait all within normal limits Extrem Other: Range of motion, strength, pulses, cap refill preserved in the upper and lower extremities Psych Other: Appearance, mental status, speech, movement, mood, affect, attitude, thought process, thought content, judgment are all within normal limits Procedures Laceration Repair Laceration 1: Time of procedure: 15:17 Site: scalp Side (If applicable): right Size (cm): 2.5 Description: linear Depth: simple, single layer Local Anesthetic: lidocaine 1% Amount of anesthesia used (mL): 3 Skin layer closed with: wilfredo Number of sutures: 5 Scores GCS Citation: 15 Course Orders Ordered: ED Orders 07/28/24 14:10 CT head/brain wo con Stat 07/28/24 14:17 CT cervical spine wo con Stat Vital Signs Vital signs: Vital Signs - 8 hr 07/28/24 14:05 07/28/24 15:43 Temperature 97.8 F Pulse Rate 61 61 Respiratory Rate 16 16 Blood Pressure 159/85 H Pulse Oximetry 98 98 Oxygen Delivery Method Room Air Room Air Reviewed MDM - Fall Imaging Data CT scan - head: Radiologist's Impression: [place] [address] CT Scan Report Signed Patient: Sajan Chaidez MR#: [id number] : 1945 Acct:[id number] Age/Sex: 79 / M Date of Service: 07/28/24 Loc: ED Accession Number: [id number] Procedure: CT head/brain wo con Ordering Provider: Gallo Aguirre MD PROCEDURE: CT HEAD/BRAIN WO CON INDICATIONS: fall on thinner. head lac TECHNIQUE: Noncontrast 4.5 mm thick angled axial sections acquired from the foramen magnum to the vertex, with coronal and sagittal reformats. For radiation dose reduction, the following was used: automated exposure control, adjustment of mA and/or kV according to patient size. COMPARISON: [facility], CT, CT CERVICAL SPINE WO CON, 07/28/2024, 14:23. [facility], CT, CT HEAD/BRAIN WO CON, 05/12/2022, 12:57. FINDINGS: Image quality: Mild streak artifact can be seen through the skull base. CSF spaces: Basal cisterns are patent. No extra-axial fluid collections. The ventricles are symmetric in size and shape. Brain: No intracranial bleeds or masses. There is cerebral volume loss for age, with resultant ventricular and sulcal prominence. There are periventricular and deep white matter chronic small vessel ischemic changes. There is intracranial internal carotid artery atherosclerosis. Skull and face: Mild scalp thickening can be seen in on the right laterally and superiorly. No associated calvarial fracture can be seen. Calvarium and visualized facial bones appear intact, without suspicious lesions. Sinuses: Visualized sinuses and mastoids are clear. IMPRESSION: Mild scalp thickening seen on the right posteriorly and laterally, which is attributed to a laceration. No displaced calvarial fracture can be seen. No acute intracranial hemorrhage is seen. No acute intracranial pathology. Dictated by: Umer Gayle M.D. on 07/28/2024 at 13:37 Approved by: Umer Gayle M.D. on 07/28/2024 at 13:38 CT - cervical spine: Radiologist's Impression: [place] [address] CT Scan Report Signed Patient: Sajan Chaidez MR#: [id number] : 1945 Acct:[id number] Age/Sex: 79 / M Date of Service: 07/28/24 Loc: ED Accession Number: [id number] Procedure: CT head/brain wo con Ordering Provider: Gallo Aguirre MD PROCEDURE: CT HEAD/BRAIN WO CON INDICATIONS: fall on thinner. head lac TECHNIQUE: Noncontrast 4.5 mm thick angled axial sections acquired from the foramen magnum to the vertex, with coronal and sagittal reformats. For radiation dose reduction, the following was used: automated exposure control, adjustment of mA and/or kV according to patient size. COMPARISON: [facility], CT, CT CERVICAL SPINE WO CON, 07/28/2024, 14:23. [facility], CT, CT HEAD/BRAIN WO CON, 05/12/2022, 12:57. FINDINGS: Image quality: Mild streak artifact can be seen through the skull base. CSF spaces: Basal cisterns are patent. No extra-axial fluid collections. The ventricles are symmetric in size and shape. Brain: No intracranial bleeds or masses. There is cerebral volume loss for age, with resultant ventricular and sulcal prominence. There are periventricular and deep white matter chronic small vessel ischemic changes. There is intracranial internal carotid artery atherosclerosis. Skull and face: Mild scalp thickening can be seen in on the right laterally and superiorly. No associated calvarial fracture can be seen. Calvarium and visualized facial bones appear intact, without suspicious lesions. Sinuses: Visualized sinuses and mastoids are clear. IMPRESSION: Mild scalp thickening seen on the right posteriorly and laterally, which is attributed to a laceration. No displaced calvarial fracture can be seen. No acute intracranial hemorrhage is seen. No acute intracranial pathology. Dictated by: Umer Gayle M.D. on 07/28/2024 at 13:37 Approved by: Umer Gayle M.D. on 07/28/2024 at 13:38 MDM Narrative Medical decision making narrative: Pleasant 79-year-old male who unfortunately tripped and fell while he was out in the [place] striking his head on a rock. No loss of consciousness. Sustained a 3 cm wound to the right parietal scalp area. On blood thinners. For atrial fibrillation. Head CT is negative. C-spine is negative. The area is cleaned, 1% lidocaine is used to anesthetize the area. Five wilfredo were placed with good approximation. Patient now the bleeding is controlled. Direct pressure is applied. Wilfredo need to come out in 7-10 days Patient can take Tylenol for discomfort pain with Eliquis The wilfredo can, either in the walk-in clinic, the urgent Care, his primary care doctor's office or last resort in the emergency department. Concussion information, supportive therapy information, ED precautions Differential diagnosis; fall, scalp laceration, concussion. Discharge Plan Departure Patient Disposition: Home Clinical Impression: Fall Qualifiers: Encounter type: initial encounter Qualified Code(s): W19.XXXA - Unspecified fall, initial encounter Laceration of scalp Qualifiers: Encounter type: initial encounter Qualified Code(s): S01.01XA - Laceration without foreign body of scalp, initial encounter Concussion Qualifiers: Encounter type: initial encounter Loss of consciousness presence/duration: without LOC Qualified Code(s): S06.0X0A - Concussion without loss of consciousness, initial encounter Instructions: DI for Trauma Activity Restrictions/Additional Instructions: Towel to the back her head and ice [id number] Tylenol you can take this with the Eliquis Wilfredo need to come out in 7-10 days they can come out in the walk-in clinic, urgent care, your primary care doctor's office, the emergency room department Return to the emergency department for blurred vision, numbness, tingling, weakness, dizziness, lightheadedness, nausea, vomiting. Most likely will have signs and symptoms of concussion Head CT was negative Cervical spine CT was negative Follow up with your primary care doctor Return to the emergency department as needed Prescriptions: No Action valsartan 80 mg tablet 80 mg PO DAILY Eliquis 5 mg tablet 5 mg PO BID flecainide 50 mg tablet 50 mg PO BID Flovent HFA 220 mcg/actuation HFA aerosol inhaler 1 puff inhalation Q12H Qty: 12 2RF Rx Instructions: administer with spacer atorvastatin 20 mg tablet See Rx Instructions .ROUTE .COMPLEX Qty: 90 0RF Dose Instruction: take 1 tablet by mouth at bedtime Rx Instructions: take 1 tablet by mouth at bedtime albuterol sulfate 90 mcg/actuation HFA aerosol inhaler See Rx Instructions inhalation Q6H PRN (Reason: shortness of breath or wheezing) Qty: 8.5 2RF Rx Instructions: 2 puffs as need every 6 hours for wheezing and shortness of breath. PLEASE call and make appt with Dr. Chong before refills are gone. 05/21/22 inhaled every 6 hours PRN; apixaban 5 mg tablet 5 mg PO BID Qty: 180 1RF levothyroxine 88 mcg tablet 88 mcg PO DAILY Qty: 90 0RF metoprolol tartrate [Lopressor] 50 mg tablet 25 mg PO DAILY Rx Instructions: 1/2 tab twice a day Referrals: Johana Chong MD [Primary Care Provider] - Stand Alone Forms: Patient Portal/API
[2024-07-28 15:43] VITALS: BP 159/85; PULSE 61; RESP 16; O2SAT 98
== END 2024-07-28 15:43 | disposition home or self-care (01) ==
PROVIDERS: Emergency Provider Physician Assistant; PCP Family Medicine
DX: S06.0X0A Concussion without loss of consciousness, initial encounter (principal); S01.01XA Laceration without foreign body of scalp, initial encounter; W01.198A Fall on same level from slipping, tripping and stumbling with subsequent striking against other object, initial encounter; R40.2412 Glasgow coma scale score 13-15, at arrival to emergency department; Z79.01 Long term (current) use of anticoagulants
CPT/HCPCS: 12001; 70450; 72125; 99284

== ENCOUNTER → 2024-09-24 07:04 | Outpatient (CLI) | payer MEDICARE, SELFPAY ==
[2024-09-24 08:58] LABS: Alanine Aminotransferase 29 IU/L (<50); Albumin 3.5 g/dL (3.5-5.0); Albumin Globulin Ratio 1.3 (1.0-2.8); Alkaline Phosphatase 68 U/L (38-126); Aspartate Aminotransferase 29 IU/L (17-59); BUN Creatinine Ratio 18.8 (6-22); Blood Urea Nitrogen 16 mg/dL (9-20); Calcium 9.1 mg/dL (8.4-10.2); Carbon Dioxide 29 mmol/L (22-32); Chloride 104 mmol/L (98-107); Cholesterol 137 mg/dL (140-199); Estimated Glomerular Filt Rate > 60 mL/min (>60); Globulin 2.7 g/dL (1.7-4.1); Glucose 101 mg/dL (80-110); HDL Cholesterol 46 mg/dL (40-60); HEMOLYSIS < 15 (0-50); LDL Cholesterol Calculated 77 mg/dL (<100); Potassium 4.2 mmol/L (3.4-5.1); Sodium 136 mmol/L (137-145); Total Protein 6.2 g/dL (6.3-8.2); Triglycerides 71 mg/dL (35-150)
[2024-09-24 09:26] LABS: Thyroid Stimulating Hormone 4.05 uIU/mL (0.47-4.68)
== END ==
PROVIDERS: PCP Family Medicine; Referring Provider Internal Medicine Cardiovascular Disease; Visit Provider Internal Medicine Cardiovascular Disease
DX: I10 Essential (primary) hypertension (principal); E78.6 Lipoprotein deficiency; E03.9 Hypothyroidism, unspecified
CPT/HCPCS: 36415; 80053; 80061; 84443

== ENCOUNTER → 2025-08-30 13:34 | Outpatient (CLI) | payer MEDICARE, SELFPAY ==
[2025-08-30 14:01] LABS: Add Manual Diff / Slide Review NO; Hematocrit 41.6 % (41-53); Hemoglobin 14.4 g/dL (13.5-17.5); Lymphocytes Absolute Auto 1000 /uL (1100-4500); Mean Corpuscular HGB Conc 34.5 % (30-36); Mean Corpuscular Hemoglobin 35.0 PG (26-34); Mean Corpuscular Volume 101.4 fL (80-100); Platelet Count 158 X10^3/uL (150-400)
[2025-08-30 14:16] LABS: Alanine Aminotransferase 22 IU/L (<50); Albumin 3.8 g/dL (3.5-5.0); Albumin Globulin Ratio 1.5 (1.0-2.8); Alkaline Phosphatase 62 U/L (38-126); Blood Urea Nitrogen 16 mg/dL (9-20); Calcium 9.0 mg/dL (8.4-10.2); Carbon Dioxide 27 mmol/L (22-32); Chloride 106 mmol/L (98-107); Estimated Glomerular Filt Rate > 60 mL/min (>60); Globulin 2.5 g/dL (1.7-4.1); Glucose 103 mg/dL (70-99); HEMOLYSIS < 15 (0-50); Potassium 3.8 mmol/L (3.4-5.1); Sodium 142 mmol/L (137-145); Total Protein 6.3 g/dL (6.3-8.2)
[2025-08-30 14:32] LABS: Free T4, Direct Thyroxine 1.52 ng/dL (0.78-2.19)
[2025-08-30 14:46] LABS: Thyroid Stimulating Hormone 3.32 uIU/mL (0.47-4.68)
[2025-08-30 15:13] LABS: Vitamin D 25 Hydroxy (D3) 93.3 ng/mL (30.0-100.0)
== END ==
LOC: LAB 13:38
PROVIDERS: PCP Family Medicine; Referring Provider Family Medicine; Visit Provider Nurse Practitioner
DX: E55.9 Vitamin D deficiency, unspecified (principal); I48.0 Paroxysmal atrial fibrillation
CPT/HCPCS: 36415; 80053; 82306; 84439; 84443; 85025